=== PATIENT | male | born 1970 | race Caucasian/White ===

== ENCOUNTER 2018-12-04 16:41 | Emergency (ER) | payer OTHER ==
[2018-12-04] MEDS ORDERED: NA CHLORIDE 0.9% 2,000 ML ONE (17:07)
[2018-12-04 17:29] LABS: Absolute Neutrophil 7.1 K/uL (1.8-8.0); Basophils % 0.9 % (0-1.3); Hematocrit 49.4 % (39.6-49.0); Lymphocytes % 26.5 % (15.3-44.8); MPV 8.2 fL (7.6-11.3); Monocytes % 9.1 % (3.3-12.3); RBC Red Blood Cell Count 5.27 M/uL (4.33-5.43)
--- NOTE | 2018-12-04 17:42 | RAD REPORT ---
EXAM DESCRIPTION: CT - CTHCSPWOC - 12/04/2018 5:24 pm CLINICAL HISTORY: Blunt force trauma to the head, face and neck, headache, neck pain, facial pain COMPARISON: None. TECHNIQUE: Axial 5 mm thick images of the head were obtained. Axial 2 mm thick images of the cervic al spine were obtained with sagittal and coronal reconstruction images generated and reviewed. All CT scans are performed using dose optimization technique as appropriate and may include automated exposure control or mA/KV adjustment according to patient size. FINDINGS: No intracranial hemorrhage, mass, edema or acute intracranial finding. No suspicion for ac robinson infarction. No extra-axial fluid collections. Mastoid air cells are clear. Orbits, sinuses and fa cial bones are separately detailed. Cervical body height and alignment are normal. No disk space narrowing. No fracture or acute bony abn ormality. No paraspinal mass or hematoma. IMPRESSION: Negative CT head examination for acute or significant finding. Negative CT cervical spine examination for acute or significant finding. Orbits, facial bones and sinuses are separately detailed.
[2018-12-04 17:43] LABS: Potassium 3.7 mmol/L (3.5-5.1)
--- NOTE | 2018-12-04 17:53 | RAD REPORT ---
EXAM DESCRIPTION: CT - Facial Bones W/ Mpr - 12/04/2018 5:24 pm CLINICAL HISTORY: Blunt force trauma to the face COMPARISON: None. TECHNIQUE: Axial 2 millimeter thick images of the facial bones were obtained with sagittal and coron al reconstruction imaging. All CT scans are performed using dose optimization technique as appropriate and may include automated exposure control or mA/KV adjustment according to patient size. FINDINGS: Mandible is intact. Mandibular condyles show degenerative change but are normally position ed. There is comminuted fractures of the nasal bone with left deviation. Acute fracture of the bony nasal septum is present creating right deviation in the anterior nasal septum and left deviation in the mi d to posterior nasal septum. Anterior left orbital floor fracture is present. No entrapment of the in ferior rectus. There is fracture at the nasofrontal bone junction. There is fracture along the anterior margin media l left orbital wall. Left zygomatic arch is intact. Fracture extends through the medial and lateral w alls of the left maxillary sinus with pterygoid fracture. Air from the left maxillary sinus extends i nto the soft tissues along the anterior, lateral and posterior margin. Air-fluid level is present in the left maxillary sinus. There is complete opacification of the right maxillary sinus. Right orbital floor fracture is present along the anterior margin. This extends laterally to the zygoma maxillary junction. The zygoma itsel f is intact. Right pterygoid fracture is suspected. No entrapment of the right-side extra-ocular musc les. IMPRESSION: Extensive bilateral facial bone fracture pattern as detailed above. Fracture pattern most closely approximates LeFort II pattern. Orbital floor fractures do not result in depressed fracture fragments or extraocular muscle entrapmen t.
--- NOTE | 2018-12-04 17:55 | RAD REPORT ---
EXAM DESCRIPTION: RAD - Hand Right 3 View - 12/04/2018 5:36 pm CLINICAL HISTORY: Reduction of dislocation fifth digit COMPARISON: None. FINDINGS: No fracture is identified. No pre-procedure imaging available. The fifth MCP joint and at fifth digit IP joint show no dislocation. Angulation of the fifth metacarpal head would suggests irwin deling from a remote fracture. An acute fracture is not confirmed but correlation can be made with lo calizing symptoms and history of prior fracture at this site. Elsewhere no acute bone finding. No foreign body. IMPRESSION: Dislocation has been ripped use. Fifth metacarpal head shows evidence for old fracture r emodeling. An acute fracture at this site is not confirmed.
[2018-12-04] MEDS ORDERED: TETANUS & DIPHTHERIA TOX,ADULT 0.5 ML VIAL ONE (18:10)
[2018-12-04] MEDS ORDERED: FENTANYL CITR 100 MCG/2 ML ONE (18:10)
[2018-12-04] MEDS ORDERED: CEFAZOLIN/SWI 1gm 1 GM/10 ML SYR ONE (18:11)
--- NOTE | 2018-12-04 18:33 | ER ---
Nurse's Notes [facility] Name: Hi Singh Age: 48 yrs Sex: Male : 1970 Arrival Date: 12/04/2018 Time: 16:43 Bed 20 Private MD: Diagnosis: LeFort II fracture;Renal insufficiency, dehydration Presentation: 12/04 16:45 Presenting complaint: Collided with another player while playing softball, contusion hb and swelling noted to face, bleeding from nose, diaphoretic, unsteady gait, obvious deformity to right little finger. Negative LOC. 16:45 Transition of care: patient was not received from another setting of care. Onset of hb symptoms was December 04, 2018. Risk Assessment: Do you want to hurt yourself or someone else? Patient reports no desire to harm self or others. Care prior to arrival: None. 16:45 Method Of Arrival: Ambulatory 16:45 Acuity: DISHA 2 hb 16:53 Mechanism of Injury: Fall. Trauma event details: Injury occurred in the county of [facility], Injury occurred: in a recreational area. Injury occurred: December 04, 2018 Injury occurred at: 14:30. 16:55 Initial Sepsis Screen: Does the patient meet any 2 criteria? Systolic BP < 90 mmHg. No. hb Patient's initial sepsis screen is negative. Does the patient have a suspected source of infection? No. Patient's initial sepsis screen is negative. Triage Assessment: 16:50 Injury Description: Laceration sustained to right supraorbital ridge is jagged, 0.5 to tw2 2.5 cm long, not bleeding. Trauma Activation: Alert Physician: ED Physician; Name: ; Notified At: ; Arrived At: Physician: General Surgeon; Name: ; Notified At: ; Arrived At: Physician: Radiology; Name: ; Notified At: ; Arrived At: Physician: Respiratory; Name: ; Notified At: ; Arrived At: Physician: Lab; Name: ; Notified At: ; Arrived At: Historical: - Allergies: 17:05 No Known Allergies; hb - Home Meds: 17:05 None [Active]; hb - PMHx: 17:05 None; hb - PSHx: 17:05 None; hb - Immunization history: Last tetanus immunization: < 10 years ago. - Social history:: Smoking status: Patient/guardian denies using tobacco. - Ebola Screening: : No symptoms or risks identified at this time. Screenin:51 Abuse screen: Denies threats or abuse. Denies injuries from another. Nutritional hb screening: No deficits noted. Tuberculosis screening: No symptoms or risk factors identified. Fall Risk None identified. Primary Survey: 16:50 NO uncontrolled hemorrhage observed. A: The patient is alert. Airway: patent, No hb supplemental oxygen in use on arrival. Oral cavity: clear, Trachea midline. Breathing/Chest: Respiratory pattern: regular, Respiratory effort: spontaneous, unlabored, Chest inspection: symmetrical rise and fall of the chest. Circulation: Skin color: pink, Skin temperature: warm, diaphoretic. Disability Alert. Exposure/Environment: There is evidence of uncontrolled external hemorrhage. Provider notified immediately. Methods to control bleeding applied. Obvious injury(ies) are noted at this time: bruising and swelling noted to face and nose, obvious deformity noted to right little finger. 17:55 Reassessment Airway Airway Patent Breathing/Chest Respiratory pattern Regular tw2 Respiratory effort Spontaneous Unlabored Breath sounds Clear Chest inspection Symmetrical. Secondary Survey: 16:55 HEENT: Face Other bruising and swelling noted to bilateral cheek bones, forehead, and hb nose. Blood noted from notes. Gastrointestinal: No deficits noted. : No deficits noted. No signs and/or symptoms were reported regarding the genitourinary system. Musculoskeletal: Reports right knee pain. 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 hb 16:53 Reassessment: Trauma Alert called [id number]. hb 16:55 General: Appears uncomfortable, Behavior is cooperative, anxious, restless. Pain: Pain hb currently is 10 out of 10 on a pain scale. Neuro: Level of Consciousness is awake, alert, obeys commands, Oriented to person, place, time, situation, Gait is unsteady. EENT: Nares with bleeding noted bilaterally. Cardiovascular: Heart tones S1 S2 present Capillary refill < 3 seconds Patient's skin is warm and dry. Respiratory: Airway is patent Trachea midline Respiratory effort is even, unlabored, Respiratory pattern is regular, symmetrical, Breath sounds are clear bilaterally. GI: No signs and/or symptoms were reported involving the gastrointestinal system. : No signs and/or symptoms were reported regarding the genitourinary system. Derm: Skin is intact, is healthy with good turgor, Skin is diaphoretic, Skin is pink. Musculoskeletal: Swelling bilateral brow area, nose, bilateral cheekbone. 17:25 Reassessment: Patient appears in no apparent distress at this time. returned from CT. em 18:30 Reassessment: Patient appears in no apparent distress at this time. Patient and/or em family updated on plan of care and expected duration. Pain level reassessed. Patient is alert, oriented x 3, equal unlabored respirations, skin warm/dry/pink. rates pain 5/10, friends at bedside. 19:10 Reassessment: report given to [place]IA Salazar at [facility], pending EMS em transportation. 19:34 Reassessment: Patient and/or family updated on plan of care and expected duration. Pain tl1 level reassessed. Patient is alert, oriented x 3, equal unlabored respirations, skin warm/dry/pink. Patient states feeling better. Vital Signs: 16:50 BP 74 / 45; Pulse 103; Resp 20; Temp 97.5; Pulse Ox 94% on R/A; Weight 89.81 kg; Height hb 5 ft. 10 in. (177.80 cm); Pain 10/10; 17:03 BP 113 / 67; Pulse 75; em 17:35 BP 128 / 81; Pulse 68; Resp 18; Pulse Ox 98% on R/A; em 18:30 BP 138 / 89; Pulse 84; Resp 18; Temp 98.0(A); Pulse Ox 100% on R/A; Pain 5/10; em 19:35 BP 127 / 86; Pulse 87; Resp 17; Temp 98; Pulse Ox 100% on R/A; Pain 0/10; tl1 16:50 Body Mass Index 28.41 (89.81 kg, 177.80 cm) hb Maurice Coma Score: 16:51 Eye Response: spontaneous(4). Verbal Response: oriented(5). Motor Response: obeys hb commands(6). Total: 15. 17:35 Eye Response: spontaneous(4). Verbal Response: oriented(5). Motor Response: obeys em commands(6). Total: 15. 18:30 Eye Response: spontaneous(4). Verbal Response: oriented(5). Motor Response: obeys em commands(6). Total: 15. 19:33 Eye Response: spontaneous(4). Verbal Response: oriented(5). Motor Response: obeys tl1 commands(6). Total: 15. Trauma Score (Adult): 16:51 Eye Response: spontaneous(1); Verbal Response: oriented(1); Motor Response: obeys hb commands(2); Systolic BP: 76 to 89 mm Hg(3); Respiratory Rate: 10 to 29 per min(4); Maurice Score: 15; Trauma Score: 11 19:33 Eye Response: spontaneous(1); Verbal Response: oriented(1); Motor Response: obeys tl1 commands(2); Systolic BP: > 89 mm Hg(4); Respiratory Rate: 10 to 29 per min(4); Fifty Six Score: 15; Trauma Score: 12 ED Course: 16:43 Patient arrived in ED. rg4 16:47 Rajiv Ward LVN is Primary Nurse. em 16:48 [facility]C [facility]. snw 16:48 Selvin Gipson MD is Attending Physician. snw 16:50 Arm band placed on. hb 16:51 Triage completed. hb 17:00 Patient maintains SpO2 saturation greater than 95% on room air. Thermoregulation: warm hb blanket given to patient. 17:00 Initial lab(s) drawn, by me, sent to lab. T\T\S collected, blood band applied to patient. em Inserted saline lock: 20 gauge in right antecubital area, using aseptic technique. Blood collected. 17:05 Patient has correct armband on for positive identification. Bed in low position. Call hb light in reach. Side rails up X 1. Adult w/ patient. 17:10 Primary Nurse role handed off by Rajiv Ward LVN tw2 17:10 Pattie De, [place] is Primary Nurse. tw2 17:17 CT completed. Patient tolerated procedure well. Patient moved back from CT. mw3 17:26 CT Facial Bones W/O Con In Process Unspecified. EDMS 17:26 CT Head C Spine In Process Unspecified. EDMS 17:38 Hand Right 3 View XRAY In Process Unspecified. EDMS 19:02 No provider procedures requiring assistance completed. em 19:12 Patient transferred, IV remains in place. em Administered Medications: 17:03 Drug: NS 0.9% 1000 ml Route: IV; Rate: 1 bolus; Site: right antecubital; em 19:13 Follow up: IV Status: Completed infusion; IV Intake: 1000ml em 17:03 Drug: NS 0.9% 1000 ml Route: IV; Rate: 1 bolus; Site: right antecubital; em 19:34 Follow up: IV Status: Completed infusion tl1 18:06 Drug: fentaNYL (PF) 50 mcg Route: IVP; Site: right antecubital; tw2 18:58 Follow up: Response: No adverse reaction; Pain is decreased em 18:07 Drug: Ancef 1 grams Route: IVPB; Site: right antecubital; tw2 18:15 Follow up: Response: No adverse reaction; IV Status: Completed infusion; IV Intake: 10mlem 18:08 Drug: Tetanus-Diphtheria Toxoid Adult 0.5 ml {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 Exp: em 08/25/2020. Lot #: [id number]. } Route: IM; Site: right deltoid; 18:58 Follow up: Response: No adverse reaction em Intake: 18:15 IV: 10ml; Total: 10ml. em 19:03 PO: 0ml; Total: 10ml. em 19:13 IV: 1000ml; Total: 1010ml. em Output: 19:03 Urine: 0ml; Total: 0ml. em Outcome: 18:33 ER care complete, transfer ordered by . snw 19:11 Transferred by ground EMS to [facility], Transfer form completed. X-rays sent em w/ patient. 19:11 Condition: stable 19:11 Patient's length of stay in the Emergency Department was greater than 2 hours. transferring ptPatient's length of stay extended due to 19:38 Patient left the ED. tl1 Signatures: Dispatcher [employer] EDMS Brigid Madrigal, COAL HAULER-C COAL HAULER-Csnw Rajiv Ward, SENIOR SALES CONSULTANT SENIOR SALES CONSULTANT em Nora Nazario RN RN tl1 Sheyla Conde RN RN hb Wise, Tara, RN RN tw2 Sophia Magdaleno rg4 Carolyn Ruiz mw3 Corrections: (The following items were deleted from the chart) 17:05 16:45 Presenting complaint: Collided with another player while playing softball, hb contusion and swelling noted to face, obvious deformity to right little finger. hb 17:23 16:51 BP 84 / 47; Pulse 103bpm; Resp 20bpm; Pulse Ox 94% RA; Temp 97.5F; 89.81 kg; hb Height 5 ft. 10 in.; BMI: 28.4; Pain 10/10; hb
--- NOTE | 2018-12-04 18:33 | EDPHYS ---
Physician Documentation [facility] Name: Hi Singh Age: 48 yrs Sex: Male : 1970 Arrival Date: 12/04/2018 Time: 16:43 Bed 20 Private MD: ED Physician Selvin Gipson HPI: 12/04 17:05 This 48 yrs old Male presents to ER via Ambulatory with complaints of Finger snw Injury, Facial Injury. 17:05 Trauma demographics: County: The [place] occurred in [place] Location of Injury: The snw injury occurred outdoors, Date: , Time: 16:00. Associated injuries: The patient sustained injury to the head, contusion, pain, tenderness, right hand, contusion, deformity, painful injury, swelling. Onset: The symptoms/episode began/occurred suddenly, just prior to arrival. The patient has not experienced similar symptoms in the past. It is unknown whether or not the patient has recently seen a physician. Historical: - Allergies: 17:05 No Known Allergies; hb - Home Meds: 17:05 None [Active]; hb - PMHx: 17:05 None; hb - PSHx: 17:05 None; hb - Immunization history: Last tetanus immunization: < 10 years ago. - Social history:: Smoking status: Patient/guardian denies using tobacco. - Ebola Screening: : No symptoms or risks identified at this time. ROS: 17:01 Eyes: Negative for injury, pain, redness, and discharge. snw 17:01 Neck: Negative for injury, pain, and swelling, Cardiovascular: Negative for chest pain, palpitations, and edema, Respiratory: Negative for shortness of breath, cough, wheezing, and pleuritic chest pain, Abdomen/GI: Negative for abdominal pain, nausea, vomiting, diarrhea, and constipation, Back: Negative for injury and pain, : Negative for injury, bleeding, discharge, and swelling. 17:01 Abdomen/GI: Negative for abdominal pain, vomiting, diarrhea, and constipation, + nausea 17:01 Constitutional: Positive for fatigue, malaise. 17:01 ENT: Positive for sinus pain, nosebleed. 17:01 MS/extremity: Positive for injury or acute deformity, decreased range of motion, deformity, pain, swelling, tenderness, of the dorsal aspect of middle phalanx of right little finger and dorsal aspect of proximal phalanx of right little finger. 17:01 Skin: Positive for laceration(s), of the inner aspect of right eyebrow. 17:01 Neuro: Positive for dizziness, Negative for loss of consciousness. Exam: 16:56 Constitutional: This is a well developed, well nourished patient who is awake, alert, snw and in no acute distress. 16:56 Eyes: Pupils equal round and reactive to light, extra-ocular motions intact. Lids and lashes normal. Conjunctiva and sclera are non-icteric and not injected. Cornea within normal limits. Periorbital areas with no swelling, redness, or edema. 16:56 Neck: Trachea midline, no thyromegaly or masses palpated, and no cervical lymphadenopathy. Supple, full range of motion without nuchal rigidity, or vertebral point tenderness. No Meningismus. Chest/axilla: Normal chest wall appearance and motion. Nontender with no deformity. No lesions are appreciated. Cardiovascular: Regular rate and rhythm with a normal S1 and S2. No gallops, murmurs, or rubs. Normal PMI, no JVD. No pulse deficits. Respiratory: Lungs have equal breath sounds bilaterally, clear to auscultation and percussion. No rales, rhonchi or wheezes noted. No increased work of breathing, no retractions or nasal flaring. Abdomen/GI: Soft, non-tender, with normal bowel sounds. No distension or tympany. No guarding or rebound. No evidence of tenderness throughout. Back: No spinal tenderness. No costovertebral tenderness. Full range of motion. Skin: Warm, profuse diaphoresis with normal turgor. Normal color with no rashes, lacerations as noted to face, and no evidence of cellulitis. MS/ Extremity: Pulses equal, no cyanosis. Neurovascular intact. Full, normal range of motion except to right pinkie which has obvious dislocation, pressure/traction applied and pinkie reduced. Pt tolerated well, + NVS 16:56 Head/face: Noted is contusion, a laceration(s), that is deep, 2 cm(s), of the inner aspect of right eyebrow, swelling, that is moderate, of the right eye and nose, tenderness, that is moderate. 16:56 ENT: External ear(s): are unremarkable, Ear canal(s): are normal, TM's: are normal, Nose: External nose: contusion is noted, swelling is noted, bleeding, is noted from both nares, and is moderate, Mouth: is normal, Posterior pharynx: is normal, Voice: is normal. 16:56 Neuro: Orientation: is normal, Mentation: is normal, seizure activity, is not displayed by the patient. Vital Signs: 16:50 BP 74 / 45; Pulse 103; Resp 20; Temp 97.5; Pulse Ox 94% on R/A; Weight 89.81 kg; Height hb 5 ft. 10 in. (177.80 cm); Pain 10/10; 17:03 BP 113 / 67; Pulse 75; em 17:35 BP 128 / 81; Pulse 68; Resp 18; Pulse Ox 98% on R/A; em 18:30 BP 138 / 89; Pulse 84; Resp 18; Temp 98.0(A); Pulse Ox 100% on R/A; Pain 5/10; em 19:35 BP 127 / 86; Pulse 87; Resp 17; Temp 98; Pulse Ox 100% on R/A; Pain 0/10; tl1 16:50 Body Mass Index 28.41 (89.81 kg, 177.80 cm) hb Maurice Coma Score: 16:51 Eye Response: spontaneous(4). Verbal Response: oriented(5). Motor Response: obeys hb commands(6). Total: 15. 17:35 Eye Response: spontaneous(4). Verbal Response: oriented(5). Motor Response: obeys em commands(6). Total: 15. 18:30 Eye Response: spontaneous(4). Verbal Response: oriented(5). Motor Response: obeys em commands(6). Total: 15. 19:33 Eye Response: spontaneous(4). Verbal Response: oriented(5). Motor Response: obeys tl1 commands(6). Total: 15. Trauma Score (Adult): 16:51 Eye Response: spontaneous(1); Verbal Response: oriented(1); Motor Response: obeys hb commands(2); Systolic BP: 76 to 89 mm Hg(3); Respiratory Rate: 10 to 29 per min(4); Solen Score: 15; Trauma Score: 11 19:33 Eye Response: spontaneous(1); Verbal Response: oriented(1); Motor Response: obeys tl1 commands(2); Systolic BP: > 89 mm Hg(4); Respiratory Rate: 10 to 29 per min(4); Maurice Score: 15; Trauma Score: 12 MDM: 17:10 Patient medically screened. snw 18:17 Data reviewed: vital signs, nurses notes. Data interpreted: Pulse oximetry: on room air snw is 98 %. Interpretation: normal. Counseling: I had a detailed discussion with the patient and/or guardian regarding: the historical points, exam findings, and any diagnostic results supporting the discharge/admit diagnosis, lab results, radiology results, the need to transfer to another facility. Response to treatment: the patient's symptoms have markedly improved after treatment, A\T\O x 3, blood pressure improved, no vomiting, dizziness improved, full EOM continues, parasthesias to bilateral cheeks. Epistaxis clamp removed and then replaced for continued bloody discharge. 18:27 Physician consultation: Dr Mariza Cordero was called at 18:28, was contacted at 18:28, snw regarding regarding transfer, to [facility]. Dr. Cordero kindly accepts pt in transfer. 12/04 16:54 Order name: Basic Metabolic Panel; Complete Time: 17:43 snw 12/04 16:54 Order name: CBC with Diff; Complete Time: 17:56 snw 12/04 16:54 Order name: CT Head C Spine; Complete Time: 17:43 snw 12/04 16:54 Order name: Type And Screen; Complete Time: 18:15 snw 12/04 17:51 Order name: Add On-Lab snw 12/04 18:25 Order name: Creatine Phosphokinase; Complete Time: 19:01 EDMS 12/04 16:54 Order name: Hand Right 3 View XRAY; Complete Time: 17:56 snw 12/04 16:54 Order name: Labs collected and sent; Complete Time: 17:02 snw 12/04 16:55 Order name: CT Facial Bones W/O Con; Complete Time: 17:56 snw 12/04 16:54 Order name: Misc. Order: epistaxis clamp; Complete Time: 17:02 snw Administered Medications: 17:03 Drug: NS 0.9% 1000 ml Route: IV; Rate: 1 bolus; Site: right antecubital; em 19:13 Follow up: IV Status: Completed infusion; IV Intake: 1000ml em 17:03 Drug: NS 0.9% 1000 ml Route: IV; Rate: 1 bolus; Site: right antecubital; em 19:34 Follow up: IV Status: Completed infusion tl1 18:06 Drug: fentaNYL (PF) 50 mcg Route: IVP; Site: right antecubital; tw2 18:58 Follow up: Response: No adverse reaction; Pain is decreased em 18:07 Drug: Ancef 1 grams Route: IVPB; Site: right antecubital; tw2 18:15 Follow up: Response: No adverse reaction; IV Status: Completed infusion; IV Intake: 10mlem 18:08 Drug: Tetanus-Diphtheria Toxoid Adult 0.5 ml {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 Exp: em 08/25/2020. Lot #: [id number]. } Route: IM; Site: right deltoid; 18:58 Follow up: Response: No adverse reaction em Disposition: 12/04/18 18:33 Transfer ordered to [facility]. Diagnosis are LeFort II fracture, Renal insufficiency, dehydration. - Reason for transfer: Higher level of care. - Accepting physician is Dr. Cordero. - Condition is Stable. - Problem is new. - Symptoms have improved. Addendum: 12/06/2018 19:02 Co-signature as Attending Physician, Selvin Gipson MD. r n Signatures: Dispatcher [employer] EDMS Brigid Madrigal, RECORDS MANAGEMENT TECHNICIAN-C RECORDS MANAGEMENT TECHNICIAN-Csnw Ed, Rajiv, ADOPTION SERVICES MANAGER ADOPTION SERVICES MANAGER em Selvin Gipson MD MD rn Lasagna, Tonya RN RN tl1 Sheyla Conde, RN Pattie Callejas RN RN tw2 Corrections: (The following items were deleted from the chart) 12/04 19:38 18:33 12/04/2018 18:33 Transfer ordered to [facility]. tl1 Diagnosis is LeFort II fracture; Renal insufficiency, dehydration. Reason for transfer: Higher level of care. Accepting physician is Dr. Cordero. Condition is Stable. Problem is new. Symptoms have improved. snw
[2018-12-04 19:54] VITALS: O2SAT 100
[2018-12-04 19:56] VITALS: BP 127/86; TEMP 98
== END 2018-12-04 19:38 | disposition short-term general hospital (02) ==
LOC: ER 16:41
DX: S02.412A LeFort II fracture, initial encounter for closed fracture (principal); E86.0 Dehydration; N28.9 Disorder of kidney and ureter, unspecified; R04.0 Epistaxis; X58.XXXA Exposure to other specified factors, initial encounter; Y93.9 Activity, unspecified; Y92.89 Other specified places as the place of occurrence of the external cause; Z23 Encounter for immunization
CPT/HCPCS: 36415; 70450; 70486; 72125; 76377; 80048; 82550; 85025; 86850; 86900; 86901; 90471; 90714; 96361; 96374; 96375; 99285; J0690; J3010; J7030

== ENCOUNTER 2019-03-29 22:39 | Emergency (ER) | payer OTHER ==
[2019-03-30] MEDS ORDERED: NA CHLORIDE 0.9% 1,000 ML ONE (00:27)
[2019-03-30 01:40] LABS: Absolute Lymphocytes (CBC) 2.5 K/uL (0.7-4.9); Basophils % 1.2 % (0-1.3); Hematocrit 40.8 % (39.6-49.0); Lymphocytes % 30.9 % (15.3-44.8); MPV 8.4 fL (7.6-11.3); RBC Red Blood Cell Count 4.36 M/uL (4.33-5.43)
[2019-03-30 01:49] LABS: Albumin 3.9 g/dL (3.4-5.0); Bilirubin Total 0.5 mg/dL (0.2-1.0); Potassium 3.7 mmol/L (3.5-5.1); Protein, Total 7.8 g/dL (6.4-8.2)
--- NOTE | 2019-03-30 02:41 | ER ---
Nurse's Notes [facility] [place] Name: Hi Singh Age: 49 yrs Sex: Male : 1970 Arrival Date: 03/29/2019 Time: 22:42 Bed 17 Private MD: Diagnosis: Renal colic;right flank pain Presentation: 03/29 22:50 Presenting complaint: Patient states: Lower back pain that feel like kidney stone. Pt ao report Kidney stones in the past. Pt denies nausea and vomiting. Patient denies blood in the urine and reports burning sensations and frequency. Transition of care: patient was not received from another setting of care. Onset of symptoms is unknown. Risk Assessment: Do you want to hurt yourself or someone else? Patient reports no desire to harm self or others. Initial Sepsis Screen: Does the patient meet any 2 criteria? No. Patient's initial sepsis screen is negative. Does the patient have a suspected source of infection? No. Patient's initial sepsis screen is negative. Care prior to arrival: None. 22:50 Method Of Arrival: Ambulatory ao 22:50 Acuity: DISHA 3 ao Historical: - Allergies: 22:54 No Known Allergies; ao - Home Meds: 22:54 None [Active]; ao - PMHx: 22:54 Kidney stones; ao - PSHx: 22:54 Facial Sx; ao - Immunization history:: Adult Immunizations up to date. - Social history:: Smoking status: Patient/guardian denies using tobacco, Patient/guardian denies using street drugs, IV drugs. - Ebola Screening: : Patient negative for fever greater than or equal to 101.5 degrees Fahrenheit, and additional compatible Ebola Virus Disease symptoms Patient denies exposure to infectious person Patient denies travel to an Ebola-affected area in the 21 days before illness onset. Screenin:12 Abuse screen: Denies threats or abuse. Denies injuries from another. Nutritional ao screening: No deficits noted. Tuberculosis screening: No symptoms or risk factors identified. Fall Risk None identified. Assessment: 23:11 General: Appears in no apparent distress. uncomfortable, Behavior is appropriate for ao age. Pain: Complains of pain in Lower back pain Pain currently is 8 out of 10 on a pain scale. Neuro: Level of Consciousness is awake, alert, obeys commands, Oriented to person, place, time, situation, Appropriate for age Moves all extremities. Full function Speech is normal, Facial symmetry appears normal. Cardiovascular: Capillary refill < 3 seconds Patient's skin is warm and dry. Respiratory: Airway is patent Respiratory effort is even, unlabored, Respiratory pattern is regular, symmetrical. GI: Reports lower abdominal pain. : Reports burning with urination, urinary frequency. EENT: No signs and/or symptoms were reported regarding the EENT system. Derm: No signs and/or symptoms reported regarding the dermatologic system. Musculoskeletal: Reports pain in left low back and right low back. 03/30 00:00 Reassessment: Patient appears in no apparent distress at this time. Patient and/or jb4 family updated on plan of care and expected duration. Pain level reassessed. Patient is alert, oriented x 3, equal unlabored respirations, skin warm/dry/pink. 01:03 Reassessment: Patient appears in no apparent distress at this time. Patient and/or jb4 family updated on plan of care and expected duration. Pain level reassessed. Patient is alert, oriented x 3, equal unlabored respirations, skin warm/dry/pink. Patient states feeling better. 02:23 Reassessment: Patient appears in no apparent distress at this time. Patient and/or jb4 family updated on plan of care and expected duration. Pain level reassessed. Patient is alert, oriented x 3, equal unlabored respirations, skin warm/dry/pink. 02:50 Reassessment: Patient appears in no apparent distress at this time. Patient and/or jb4 family updated on plan of care and expected duration. Pain level reassessed. Patient is alert, oriented x 3, equal unlabored respirations, skin warm/dry/pink. PT verbalized understanding of d/c and follow up instructions. Vital Signs: 03/29 22:54 BP 144 / 92; Pulse 62; Resp 18; Temp 97.6(O); Pulse Ox 98% on R/A; Weight 88.45 kg (M); ao Height 5 ft. 9 in. (175.26 cm); Pain 8/10; 03/30 00:00 BP 130 / 67; Pulse 61; Resp 16; Pulse Ox 96% on R/A; jb4 01:03 BP 126 / 85; Pulse 75; Resp 16; Pulse Ox 98% on R/A; jb4 02:00 BP 136 / 91; Pulse 70; Resp 16; Pulse Ox 99% on R/A; jb4 03/29 22:54 Body Mass Index 28.80 (88.45 kg, 175.26 cm) ao ED Course: 03/29 22:42 Patient arrived in ED. cf2 22:53 Triage completed. ao 22:55 Arm band placed on right wrist. Patient placed in waiting room, on pulse oximetry, ao Patient notified of wait time. 23:12 Patient has correct armband on for positive identification. Pulse ox on. NIBP on. ao 23:20 Initial lab(s) drawn, by ED staff, sent to lab. Inserted saline lock: 20 gauge in right jb4 antecubital area, using aseptic technique. Blood collected. 10 00:00 Renato Trevino, RN is Primary Nurse. jb4 00:37 João Ratliff MD is Attending Physician. ps1 00:53 CT completed. Patient tolerated procedure well. Patient moved to CT via stretcher. Patient moved back from CT. 01:15 CT Stone Protocol In Process Unspecified. EDMS 02:38 Teto Armendariz MD is Referral Physician. ps1 02:50 No provider procedures requiring assistance completed. IV discontinued, intact, jb4 bleeding controlled, No redness/swelling at site. Pressure dressing applied. Administered Medications: 00:35 Drug: NS 0.9% 1000 ml Route: IV; Rate: 1000 ml; Site: right antecubital; jb4 01:30 Follow up: Response: No adverse reaction; IV Status: Completed infusion; IV Intake: jb4 1000ml Intake: 01:30 IV: 1000ml; Total: 1000ml. jb4 Outcome: 02:39 Discharge ordered by . ps1 02:50 Discharged to home ambulatory, with family. jb4 02:50 Condition: stable 02:50 Discharge instructions given to patient, family, Instructed on discharge instructions, follow up and referral plans. Demonstrated understanding of instructions, follow-up care. 02:52 Patient left the ED. jb4 Signatures: Dispatcher [employer] EDNJ Mo Torres Alex RN RN Renato Boudreaux RN RN jb4 João Ratliff MD MD ps1 Rosamaria Borja cf2
--- NOTE | 2019-03-30 02:41 | EDPHYS ---
Physician Documentation [facility] Name: Hi Singh Age: 49 yrs Sex: Male : 1970 Arrival Date: 03/29/2019 Time: 22:42 Bed 17 Private MD: ED Physician João Ratliff HPI: 03/30 02:10 This 49 yrs old Male presents to ER via Ambulatory with complaints of Back ps1 Pain, Abdominal Pain. 02:10 patient presenting with right flank pain. Onset was today. Pain was described as ps1 throbbing. Hx of stones and feels like the same. Prior to evaluation by myself the patient states that his pain spontaneously resolved. He is afebrile and able to make urine. . Historical: - Allergies: 03/29 22:54 No Known Allergies; ao - Home Meds: 22:54 None [Active]; ao - PMHx: 22:54 Kidney stones; ao - PSHx: 22:54 Facial Sx; ao - Immunization history:: Adult Immunizations up to date. - Social history:: Smoking status: Patient/guardian denies using tobacco, Patient/guardian denies using street drugs, IV drugs. - Ebola Screening: : Patient negative for fever greater than or equal to 101.5 degrees Fahrenheit, and additional compatible Ebola Virus Disease symptoms Patient denies exposure to infectious person Patient denies travel to an Ebola-affected area in the 21 days before illness onset. ROS: 03/30 02:34 Constitutional: Negative for fever, chills, and weight loss, Eyes: Negative for injury, ps1 pain, redness, and discharge, Cardiovascular: Negative for chest pain, palpitations, and edema, Respiratory: Negative for shortness of breath, cough, wheezing, and pleuritic chest pain, Abdomen/GI: Negative for abdominal pain, nausea, vomiting, diarrhea, and constipation, MS/Extremity: Negative for injury and deformity, Skin: Negative for injury, rash, and discoloration. : Positive for urinary symptoms, flank pain. Exam: 02:34 Constitutional: This is a well developed, well nourished patient who is awake, alert, ps1 and in no acute distress. Head/Face: Normocephalic, atraumatic. Eyes: Pupils equal round and reactive to light, extra-ocular motions intact. Lids and lashes normal. Conjunctiva and sclera are non-icteric and not injected. Chest/axilla: Normal chest wall appearance and motion. Nontender with no deformity. No lesions are appreciated. Cardiovascular: Regular rate and rhythm. No gallops, murmurs, or rubs. Normal PMI, no JVD. No pulse deficits. Respiratory: Lungs have equal breath sounds bilaterally, clear to auscultation and percussion. No rales, rhonchi or wheezes noted. No increased work of breathing, no retractions or nasal flaring. Abdomen/GI: Soft, non-tender, with normal bowel sounds. No distension or tympany. No guarding or rebound. No evidence of tenderness throughout. MS/ Extremity: Pulses equal, no cyanosis. Neurovascular intact. Full, normal range of motion. Neuro: Awake and alert, GCS 15, oriented to person, place, time, and situation. Cranial nerves II-XII grossly intact. Sensory grossly intact. Vital Signs: 03/29 22:54 BP 144 / 92; Pulse 62; Resp 18; Temp 97.6(O); Pulse Ox 98% on R/A; Weight 88.45 kg (M); ao Height 5 ft. 9 in. (175.26 cm); Pain 8/10; 03/30 00:00 BP 130 / 67; Pulse 61; Resp 16; Pulse Ox 96% on R/A; jb4 01:03 BP 126 / 85; Pulse 75; Resp 16; Pulse Ox 98% on R/A; jb4 02:00 BP 136 / 91; Pulse 70; Resp 16; Pulse Ox 99% on R/A; jb4 03/29 22:54 Body Mass Index 28.80 (88.45 kg, 175.26 cm) ao MDM: 02:10 Patient medically screened. ps1 02:40 Data reviewed: vital signs, nurses notes, radiologic studies, and as a result, I will ps1 discharge patient. Counseling: I had a detailed discussion with the patient and/or guardian regarding: the historical points, exam findings, and any diagnostic results supporting the discharge/admit diagnosis, lab results, radiology results, the need for outpatient follow up, to return to the emergency department if symptoms worsen or persist or if there are any questions or concerns that arise at home. ED course: passed stone in urine sample. Sent stone to lab. . 03/30 00:24 Order name: CBC with Diff; Complete Time: 02:10 aa1 03/30 00:24 Order name: CMP; Complete Time: 02:10 aa1 03/30 00:24 Order name: Urine Dipstick-Ancillary (obtain specimen); Complete Time: 02:40 aa1 03/30 00:24 Order name: CT Stone Protocol aa1 Administered Medications: 00:35 Drug: NS 0.9% 1000 ml Route: IV; Rate: 1000 ml; Site: right antecubital; jb4 01:30 Follow up: Response: No adverse reaction; IV Status: Completed infusion; IV Intake: jb4 1000ml Disposition: 03/30/19 02:39 Discharged to Home. Impression: Renal colic, right flank pain. - Condition is Stable. - Discharge Instructions: Renal Colic. - Medication Reconciliation Form, Thank You Letter, Antibiotic Education, Prescription Opioid Use form. - Follow up: Teto Armendariz MD; When: 48 Hours; Reason: Further diagnostic work-up, Recheck today's complaints, Continuance of care, Re-evaluation by your physician. Follow up: Emergency Department; When: As needed; Reason: Fever > 102 F, Worsening of condition. - Problem is new. - Symptoms are resolved. Signatures: Dispatcher [employer] EDMS Penny Todd RN RN aa1 Kvng Lester RN Renato Doll RN RN jb4 João Ratliff MD MD ps1 Corrections: (The following items were deleted from the chart) 02:37 02:10 patient presenting with right flank pain. ps1 ps1 02:52 02:39 03/30/2019 02:39 Discharged to Home. Impression: Renal colic; right flank pain. jb4 Condition is Stable. Forms are Medication Reconciliation Form, Thank You Letter, Antibiotic Education, Prescription Opioid Use. Follow up: Teto Armendariz; When: 48 Hours; Reason: Further diagnostic work-up, Recheck today's complaints, Continuance of care, Re-evaluation by your physician. Follow up: Emergency Department; When: As needed; Reason: Fever > 102 F, Worsening of condition. Problem is new. Symptoms are resolved. ps1
[2019-03-30 02:58] LABS: Urine Blood 2+ (NEG); Urine Glucose NEGATIVE (NEG); Urine Protein NEGATIVE (NEG); Urine Specific Gravity 1.015 (1.005-1.030)
[2019-03-30 03:09] VITALS: TEMP 97.6
[2019-03-30 03:13] VITALS: BP 136/91; O2SAT 99
--- NOTE | 2019-03-30 10:41 | RAD REPORT ---
EXAM DESCRIPTION: Stone Protocol CLINICAL HISTORY: KIDNEY STONES COMPARISON: None. TECHNIQUE: CT ABDOMEN PELVIS WITHOUT IV CONTRAST on 03/30/2019 12:24 AM CDT This exam was performed according to our departmental dose-optimization program, which includes autom ated exposure control, adjustment of the mA and/or kV according to patient size and/or use of iterati ve reconstruction technique. FINDINGS: Lower lungs are clear. Abdomen: There are multiple small presumed cysts within the liver, many of which are too small to umesh racterize. There is no biliary dilatation. Gallbladder is decompressed. The pancreas and spleen are n ormal in appearance. There are at least three right renal calculi and at least nine left renal calcul i. These measure up to 2 mm. There is no hydronephrosis. Abdominal aorta is normal in course and caliber without aneurysm. There is no free air. There is no r etroperitoneal adenopathy. Pelvis: There is moderate diverticulosis of the sigmoid colon. There is a 3 mm calculus in the urinar y bladder. There is no free fluid. Appendix is normal. Skeleton: There are no acute osseous findings. No suspicious bony lesions. IMPRESSION: Bilateral nephrolithiasis, more significant on the left. No hydronephrosis. Tiny urinary bladder calculus. Electronically signed by: Stas Ruffin MD 03/30/2019 1:19 AM CDT Due to temporary technical issues with the PACS/Fluency reporting system, reports are being signed by the in house radiologist as a courtesy to ensure prompt reporting. The interpreting radiologist is f ully responsible for the content of the report.
== END 2019-03-30 02:52 | disposition home or self-care (01) ==
LOC: ER 22:39
DX: N23 Unspecified renal colic (principal)
CPT/HCPCS: 85025; 36415; 88300; 81003; 80053; 82360; 76377; 74176; 96360; 99284; J7030

== ENCOUNTER 2019-04-19 06:06 | Day surgery (SDC) | payer OTHER ==
--- NOTE | 2019-04-12 09:31 | EKG ---
Test Date: 2019-04-12 Test Time: 09:29:32 Criminal Intelligence Analyst: MARIA ELENA MEASUREMENT RESULTS: Intervals: Rate: 52 [place]: 172 QRSD: 88 QT: 432 QTc: 401 [place]: P: 51 [place]: 172 QRS: 47 T: 38 INTERPRETIVE STATEMENTS: Sinus bradycardia Otherwise normal ECG Compared to ECG 09/28/2016 08:00:03 Sinus rhythm no longer present Electronically Signed On 04-12-19 09:31:11 CDT by Osorio Wright
[2019-04-12 10:13] LABS: Urine Appearance CLEAR; Urine Bilirubin NEGATIVE (NEG); Urine Blood NEGATIVE (NEG); Urine Color YELLOW; Urine Glucose NEGATIVE (NEG); Urine Protein NEGATIVE (NEG); Urine Urobilinogen 0.2 mg/dL (0.2-1.0); Urine pH 6.5 (5.0-7.0)
--- NOTE | 2019-04-12 10:20 | RAD REPORT ---
EXAM DESCRIPTION: RAD - Chest Pa And Lat (2 Views) - 04/12/2019 10:06 am CLINICAL HISTORY: preop Chest pain. COMPARISON: Abdomen 1 View (KUB) dated 10/07/2016; Chest Single View dated 09/28/2016 FINDINGS: The lungs are clear. The heart is normal in size. No displaced fractures. IMPRESSION: No acute or concerning finding suspected.
[2019-04-12 10:23] LABS: Urine Microscopic Reflex NO UMIC
[2019-04-12 10:24] LABS: Protime INR 1.04
[2019-04-12 10:26] LABS: Albumin 4.1 g/dL (3.4-5.0); Bilirubin Direct 0.2 mg/dL (0-0.2); Bilirubin Total 0.7 mg/dL (0.2-1.0); Protein, Total 8.2 g/dL (6.4-8.2)
[2019-04-12 10:43] LABS: Absolute Lymphocytes (CBC) 1.7 K/uL (0.7-4.9); Basophils % 0.7 % (0-1.3); Hematocrit 45.3 % (39.6-49.0); Lymphocytes % 24.2 % (15.3-44.8); MPV 8.3 fL (7.6-11.3); RBC Red Blood Cell Count 4.87 M/uL (4.33-5.43)
[2019-04-12 10:44] LABS: Potassium 3.9 mmol/L (3.5-5.1)
[2019-04-19] MEDS ORDERED: CEFAZOLIN/SWI 2gm 2 GM/20 ML SYR ONE (06:23)
[2019-04-19] MEDS ORDERED: Ringers Lactate 1,000 ML IV ONE ×2 (06:23→07:09)
[2019-04-19] MEDS ORDERED: FENTANYL CITR 250 MCG/5 ML ONE (06:43)
[2019-04-19] MEDS ORDERED: PROPOFOL 200 MG/20 ML VIAL IV ONE (06:43)
[2019-04-19] MEDS ORDERED: ROCURONIUM 50 MG/5 ML VIAL IV ONE (06:43)
[2019-04-19] MEDS ORDERED: MIDAZOLAM HCL 2 MG/2 ML INJ ONE (06:43)
[2019-04-19] MEDS ORDERED: LIDOCAINE 2% MPF 5 ML VIAL ONE (06:43)
[2019-04-19] MEDS ORDERED: NS 0.9% VIAL 10 ML ONE (06:51)
[2019-04-19] MEDS ORDERED: EPINEPHRINE/PF 1 MG/ML AMP ONE ×2 (06:51→07:09)
[2019-04-19] MEDS ORDERED: dexAMETHasone 4 MG/ML VIAL ONE (06:52)
[2019-04-19] MEDS ORDERED: ROPLVACAINE HCL 20 ML ONE ×2 (06:52→10:51)
[2019-04-19] MEDS ORDERED: EPHEDRINE SULF 50 MG/ML VIAL ONE (08:18)
[2019-04-19] MEDS ORDERED: KETOROLAC 30 MG/ML INJ ONE (09:46)
--- NOTE | 2019-04-19 10:25 | P.BOP ---
Preoperative diagnosis: right rotator cuff tear, impingement, AC arthrosis, biceps tendinitis Postoperative diagnosis: same, SLAP tear Primary procedure: right shoulder arthroscopic rotator cuff repair Secondary procedure: right SLAP debridement with arthroscopic subacromial decompression Other procedure(s): right arthroscopic distal clavicle excision, open subpec biceps tenodesis Estimated blood loss: <10 cc Specimen: none Findings: see dictation Anesthesia: General Implants: 1- 5.5 mm Arthrex corkscrew, 4.75 mm swivelock, 7x19 biotenodesis screw Fluids & blood products: per anesthesia Transferred to: Recovery Room Condition: Good
[2019-04-19] MEDS ORDERED: MORPHINE 4 MG/ML SYR ONE (10:38)
[2019-04-19] MEDS ORDERED: ONDANSETRON 4 MG/2 ML VIAL ONE (10:43)
[2019-04-19] MEDS ORDERED: HYDROMORPHONE HCL 1 MG/ML INJ ONE (10:44)
[2019-04-19 12:20] VITALS: O2SAT 95
--- NOTE | 2019-04-19 12:29 | RAD REPORT ---
EXAM DESCRIPTION: RAD - Shoulder 1 View - 04/19/2019 12:21 pm CLINICAL HISTORY: S P ROTATOR CUFF REPAIR COMPARISON: No comparisons FINDINGS: Single postsurgical projection of the right shoulder submitted. No fracture or subluxation is seen. Mild soft tissue swelling is evident.
[2019-04-19] MEDS ORDERED: HYDROCODONE/APAP 7.5/325 MG TAB ONE (12:38)
[2019-04-19 13:38] VITALS: BP 126/75; TEMP 97.4
--- NOTE | 2019-04-24 15:42 | OP ---
Date of Procedure: 04/19/2019 Surgeon: Delmer Burt MD Preoperative Diagnoses: 1.Right shoulder rotator cuff tear. 2.Right shoulder flexible tenosynovitis. 3.Right shoulder impingement syndrome. 4.Right shoulder acromioclavicular joint arthrosis. Postoperative Diagnoses: 1.Right shoulder rotator cuff tear. 2.Right shoulder flexible tenosynovitis. 3.Right shoulder impingement syndrome. 4.Right shoulder acromioclavicular joint arthrosis. 5.Right shoulder SLAP tear. Procedure Performed: 1.Right shoulder arthroscopic rotator cuff repair. 2.Right shoulder arthroscopic SLAP tear debridement. 3.Right shoulder arthroscopic subacromial decompression. 4.Right shoulder arthroscopic distal clavicle excision. 5.Right shoulder open subpectoral biceps tenodesis. Anesthesia: General endotracheal. Fluids: Per Anesthesia record. Estimated Blood Loss: Less than 10 mL. Implants: 1.5.5 mm Arthrex . 2.4.75 mm Arthrex SwiveLock. 3.7 mm Arthrex Bio-Tenodesis screw. Complications: None. Indication For Procedure: Hi is a 49-year-old male who presented to my clinic with signs, sympt oms, and MRI consistent with acute rotator cuff tear after sustaining an injury to his right shoulder . Patient had pain and difficulty with ADLs and tear of the rotator cuff. I discussed with the chapin ent at length risks and benefits associated with operative and nonoperative treatment. He expressed understanding and elected to proceed with operative treatment. Description Of Procedure: After informed consent was obtained, the patient was identified in the pre operative holding area. The right upper extremity was marked. The patient was then taken back to [facility], where he underwent interscalene block to the right upper extremity performed by Anesthesia. Afte r this was completed, the patient was taken to the operative room, transferred to the operative table in supine fashion and placed under general endotracheal anesthesia. The patient was then placed in a beach chair position with the extremities well padded. The right shoulder was then examined. The patient had full range of motion and no instability noted in his right shoulder. The right upper ext remity was then prepped and draped in usual sterile fashion. A time-out was initiated. The correct patient and procedure were confirmed and identified. The patient did receive his preoperative prophy lactic antibiotics. Via the posterior portal position, a spinal needle was introduced into the gleno humeral joint and joint was injected with 30 mL of normal saline to distend the capsule. A posterior portal was created using an 11 blade and an arthroscope was brought in the posterior portal position and diagnostic arthroscopy was performed. anterior portal was made under direct visualiz ation and it was placed into position to do a distal clavicle excision later in the case. Attention was first taken to the superior labrum, where the patient was noted to have type 1 SLAP tear as well as fraying and mild tearing of biceps tendon anchor. Biceps tenotomy was performed using a meniscal biter and arthroscopic shaver. Superior labrum was debrided using an arthroscopic shaver. The anter ior and posterior labrum were found to be stable to probe. The glenoid surface was probed and was fo und to be intact with no significant chondromalacia damage or chondromalacia. There were no loose sherley dies found on the axillary pouch. Subscapularis was noted to be intact. We made a full-thickness te ar over the anterior supraspinatus tendon. Lateral portal was created using a spinal needle. Arthro scopic shaver was brought into the lateral portal position and was brought in the shoulder joint conf irming a full-thickness tear. The undersurface of the rotator cuff of the supraspinatus was debrided using an arthroscopic shaver as well footprint on the greater tuberosity to create a bleeding bony b ed. Next, arthroscope was brought in the subacromial space and a subacromial bursectomy was performe d using arthroscopic shaver. Soft tissue was then debrided off the undersurface of the acromion usin g the radiofrequency ablator. Cannula was placed in the lateral portal. A spinal needle was then us ed to make a stab incision just lateral to the acromion. single 5.5 mm Arthrex screw was placed just lateral to the articular surface. The double loaded suture was passed through the supras pinatus tendon tear in an anterior and posterior fashion and tied in a horizontal mattress fashion wi th overall good reduction of the tear on the greater tuberosity. The lateral row fixation was then p erformed to improve surface area of the reduction onto the footprint of the greater tuberosity ____ single 4.75 mm Arthrex SwiveLock. There was overall good reduction of the supraspinatus tear to the greater tuberosity. Next, attention was taken to performing a subacromial decompression. The a rthroscopic bur was then placed in the lateral portal and decompression was performed as well as an a cromioplasty. Next, attention was taken to the distal clavicle where the patient have some inferior projecting screws off the medial aspect of the acromion near the AC joint. Acromioplasty was perform ed medially as well as the distal clavicle incision was performed using the arthroscopic bur to both lateral and anterior portals. After this was completed, arthroscopic instruments were removed withou t complication. Attention was then taken to the subpectoral biceps tenodesis. Approximately, a 4 cm incision was made just medial to the tendon insertion on the proximal humerus. Dissection was taken down to the fascia which was divided proximally and distally. The pec tendon was then retracted sup eriorly and the long tendons of biceps was identified. It was brought out through the incision measu red 3 cm distal to the musculoskeletal junction. It was marked and whipstitch remaining tendon was c ut and removed. The bicipital groove and then identified. Soft tissue was then debrided using an el evator as well as the Bovie. A single guidepin was placed fashion into the bicipital groo ve followed by an 8 mm reamer the tunnel. The whipstitch tendon was then placed and passe d through the Bio-Tenodesis screw and put into position in between the tunnel and there was good fixa tion of the tendon as well as the screw within the tunnel. The suture ends were then tied over the t op of the screw and the remaining sutures were cut. The wounds were then irrigated thoroughly with n ormal saline. Subcutaneous tissue was approximated using 2-0 Vicryl portals. Skin was then approxim ated using a 3-0 Monocryl. Sterile dressings were applied. Patient was awaken and transferred to [facility] in stable condition. Postoperative Plan: The patient will follow the medium rotator cuff repair protocol beginning at 3 w eeks postop. Follow up next week for wound check. ANT/DORI Voice ID: [id number] Report ID: [id number]
== END 2019-04-19 13:30 | disposition home or self-care (01) ==
LOC: OR 06:06
PROVIDERS: ATTEND Orthopaedic Surgery Sports Medicine
PROC: 0RHJ44Z Insertion of Internal Fixation Device into Right Shoulder Joint, Percutaneous Endoscopic Approach (ICD-10-PCS; 2019-04-19)
PROC: 0RNJ4ZZ Release Right Shoulder Joint, Percutaneous Endoscopic Approach (ICD-10-PCS; 2019-04-19)
PROC: 0RBJ4ZZ Excision of Right Shoulder Joint, Percutaneous Endoscopic Approach (ICD-10-PCS; 2019-04-19)
PROC: 0PB94ZZ Excision of Right Clavicle, Percutaneous Endoscopic Approach (ICD-10-PCS; 2019-04-19)
PROC: 0LS10ZZ Reposition Right Shoulder Tendon, Open Approach (ICD-10-PCS; 2019-04-19)
PROC: 0RHJ04Z Insertion of Internal Fixation Device into Right Shoulder Joint, Open Approach (ICD-10-PCS; 2019-04-19)
PROC: 0LQ14ZZ Repair Right Shoulder Tendon, Percutaneous Endoscopic Approach (ICD-10-PCS; principal; 2019-04-19 07:30)
DX: S46.011A Strain of muscle(s) and tendon(s) of the rotator cuff of right shoulder, initial encounter (principal); S43.431A Superior glenoid labrum lesion of right shoulder, initial encounter; M65.811 Other synovitis and tenosynovitis, right shoulder; M75.41 Impingement syndrome of right shoulder; M19.011 Primary osteoarthritis, right shoulder; Z82.49 Family history of ischemic heart disease and other diseases of the circulatory system
CPT/HCPCS: 93005; 85025; 80048; 36415; 85610; 80076; 85730; 81003; 71046; 73020; 29827; 29826; 29822; 29824; 23430; J2704; J0171 ×2; J2250; J3010; J2795 ×2; J1170; J0690; J7120 ×2; J2405

== ENCOUNTER 2021-02-03 17:21 | Emergency (ER) | payer OTHER ==
--- OUTSIDE RECORDS SUMMARY | 2021-02-03 17:24 | XMS REPORT | Continuity of Care Document ---
:1970 Author Organization [facility] t Address [address] [place] [address] Care Team Providers Name Role Phone Jacquie Frost Attending Clinician Jacquie Frost Admitting Clinician Problems Condition Condition Condition Status Onset Resolution Last Treating Co mments Source Name Details Category Date Date Treatment Clinician Date FOLLOW UP Diagnosis Active 2018-12-27 Memoria 12-07 09:14:00 l FOLLOW 00:00: Gavin UP 00 Active 9 [facility] LEFORT II Diagnosis Active 2018-12-09 Memoria FX - 22:17:00 l LEFORT 00:00: Gavin II FX 00 Active 12/04/2018 [facility] LEFORT II Diagnosis Active 2018-12-09 Memoria FRACTURE, 22:17:00 l INITIAL [facility] ENCOUNTER II FO FRACTURE, INITIAL ENCOUNTER FO Active [facility] Allergies, Adverse Reactions, Alerts This patient has no known allergies or adverse reactions. Social History Smoking Status Start Date Stop Date Source Social History [facility] Medications Ordered Filled Start Stop Current Ordering Indication Dosage Frequency Signature Comments Components Source Medication Medication Date Date Medication? Clinician (SIG) Name Name tramadol 2019 Yes 50 mg = 1 Zhen leon hydrochlori 6-11 tab, PO, l de 50 MG 20:39: Q4H, PRN Lottie nn Oral Tablet 00 Pain Score 6-10, X 7 day, # 30 tab, 0 Refill(s) 12 HR Yes 2 tab, PO, Memori a Guaifenesin 6-11 BID, PRN l 600 MG / 20:39: for Gavin Pseudoephed 00 congestion rine , X 10 Hydrochlori day, # 40 de 60 MG tab, 0 Extended Refill(s) Release Tablet [Mucinex D] Nasal Yes 2 drp, Memoria Saline 6-11 NASAL, l 0.65% 20:39: Q2H, # 2 [place] solution 00 ea, 0 Refill(s) Amoxicillin Yes 1 tab, PO, Memoria 875 MG / 6-11 Q12H, X 10 l Clavulanate 20:39: day, # 20 H ermann 125 MG Oral 00 tab, 0 Tablet Refill(s) [Augmentin 875-mg] Acetaminoph Yes 325 mg = 1 Memoria en 325 MG 6-11 tab, PO, l Oral Tablet 20:39: Q4H, PRN He rmann 00 Fever, X 5 day, # 30 tab, 0 Refill(s) ibuprofen Yes 600 mg = 1 Me moria 600 mg oral 6-11 tab, PO, l tablet 20:39: Q6H, PRN Gavin 00 Pain or Fever, Take with food, X 7 day, # 28 tab, 0 Refill(s) chlorhexidi Yes 0.018 gm = Memoria ne 12-06 15 mL, PO, l gluconate 20:39: BID, swish He rmann 1.2 MG/ML 00 and spit; Mouthwash do not [Peridex] swallow, # 420 mL, 0 Refill(s) Dexamethaso No Notes: Memoria ne - MEDICATION l 13:00: WASTE Product Size: 10 mg Product Wasted: ___ mg sugammadex No Notes: Memor ia 12-06 (Same as: l 03:45: [place]) sugammadex No Route: IV, M emoria (ANES) 12-06 Drug form: l 03:31: SOLN, ONCE, Stop date: 12/05/18 22:31:00 CDT ondansetron No Route: IV, Memoria (ANES) 12-06 Drug form: l 03:20: INJ, ONCE, Stop date: 12/05/18 22:20:00 CDT Oxymetazoli No Notes: Zhen leon ne 12-06 (Same as: l hydrochlori 03:19: Afrin) Herm marina de 0.5 00 MG/ML Nasal [place] [Afrin] hydromorpho No Route: IV, Memoria ne (ANES) 12-06 Drug form: l 02:25: INJ, ONCE, Stop date: 12/05/18 21:25:00 CDT midazolam 2018-0 No Route: IV, Me moria (ANES) 12-06 Drug form: l 02:04: SOLN, ONCE, Stop date: 12/05/18 21:04:00 CDT lidocaine 2018-0 No Route: IV, Me moria (ANES) 12-06 Drug form: l 02:04: INJ, ONCE, Stop date: 12/05/18 21:04:00 CDT propofol 2018-0 No Route: IV, Mem oria (ANES) 12-06 Drug form: l 02:04: INJ, ONCE, Stop date: 12/05/18 21:04:00 CDT rocuronium 2018-0 No Route: IV, M emoria (ANES) 12-06 Drug form: l 02:04: INJ, ONCE, Stop date: 12/05/18 21:04:00 CDT fentaNYL 2018-0 No Route: IV, Mem oria (ANES) 12-06 Drug form: l 02:04: INJ, ONCE, Stop date: 12/05/18 21:04:00 CDT dexamethaso 2018-0 No Route: IV, Memoria ne (ANES) 12-06 Drug form: l 01:59: INJ, ONCE, Stop date: 12/05/18 20:59:00 CDT ceFAZolin 0 No Route: IV, Me moria (ANES) 12-06 Drug form: l 01:59: INJ, ONCE, Stop date: 12/05/18 20:59:00 CDT Ondansetron 0 No 4 mg, Memor ia 12-06 Route: l 01:36: IVP, ONCE, Dosing Weight 90.909, kg, PRN Nausea & Vomiting, Start date: 12/05/18 20:36:00 CDT Hydromorpho 2019-0 No 0.5 mg, Mem oria ne - Route: l 01:36: IVP, Gavin 00 Q5Min, Dosing Weight 90.909, kg, PRN Pain Score 7-10, Start date: 12/05/18 20:36:00 CDT, Duration: 4 doses or times, Stop date: Limited # of times Naloxone 2019-0 No 0.4 mg, Memori a 12-06 Route: l 01:36: IVP, [place] 00 Q2MIN, Dosing Weight 90.909, kg, PRN Narcotic Reversal, Start date: 12/05/18 20:36:00 CDT, Duration: 8 doses or times, Stop date: Limited # of times Flumazenil 2019-0 No 0.2 mg, Zhen leon 12-06 Route: l 01:36: IVP, PRN, Gavin 00 Dosing Weight 90.909, kg, PRN Benzodiaze pine Reversal, Initial dose, Start date: 12/05/18 20:36:00 CDT, Duration: 30 day, Stop date: 01/04/19 20:35:00 CDT Oxycodone 2019-0 No 10 mg, Memori a Hydrochlori 12-06 Route: PO, l de 5 MG 01:36: Drug form: Herm marina Oral Tablet 00 TAB, Q4H, Dosing Weight 90.909, kg, PRN Pain Score 7-10, Start date: 12/05/18 20:36:00 CDT, Duration: 30 day, Stop date: 01/04/19 20:35:00 CDT Hydralazine 2019-0 No 10 mg, Zhen leon 12-06 Route: l 01:36: IVP, [place] 00 Q20Min, Dosing Weight 90.909, kg, PRN Elevated BP, Start date: 12/05/18 20:36:00 CDT, Duration: 2 doses or times, Stop date: Limited # of times Lactated 2019-0 No Route: IV, Mem oria Ringers -11 Total l Injection 01:15: Volume: Lottie nn IV (ANES) 00 1,000, 1000 mL Start date: 12/05/18 20:15:00 CDT, Stop date: 12/05/18 21:15:00 CDT sennosides, 2019-0 No Notes: Zhen leon [facility] 8.6 MG 6-10 (Same as: l Oral Tablet 14:00: Senokot) He rm Bacitracin No 1 appl, Zhen leon 6-10 Route: l 14:00: TOP, QID, Drug form: OINT, Priority: Stat, Start date: 12/05/18 9:00:00 CDT, Duration: 30 day, Stop date: 01/03/19 21:00:00 CDT Docusate No Notes: Memoria 6-10 (Same as: l 14:00: Colace) (Do Not Crush) chlorhexidi No Notes: Zhen leon ne 6-10 (Same As: l gluconate 14:00: Peridex) Herm marina 1.2 MG/ML 00 Mouthwash [Peridex] Unasyn No Notes: Memoria 6-10 Dosing l 05:00: based on Ampicillin component (Same as: Unasyn) Tramadol No Notes: Not Mem oria 6-10 to exceed l 05:00: 400mg/day. Gavin 00 (Same As: Ultram) Ibuprofen No Notes: Memori a 6-10 (Same as: l 05:00: Motrin) "Do Not Crush" Take with food. Acetaminoph No Notes: Do M emoria en 6-10 not exceed l 05:00: 4 gm/day. Gavin 00 (Same as: Tylenol) Lovenox No Notes: Memoria 6-10 (Same as: l 04:40: Lovenox) tramadol No Notes: Not Mem oria hydrochlori 6-10 to exceed l de 50 MG 04:31: 400mg/day. Her mejia Oral Tablet (Same As: Ultram) Oxycodone No Notes: Memori a Hydrochlori 6-10 (Same as: l de 5 MG 04:31: Roxicodone Herm marina Oral Tablet 00 ) Lovenox No 30 mg, Memoria 6-10 Route: l 04:31: SUB-Q, Drug form: INJ, Q12H, Dosing Weight 90.909, kg, Priority: STAT, Start date: 12/04/18 23:31:00 CDT, Duration: 30 day, Stop date: 01/03/19 21:00:00 CDT Zofran No Notes: Memoria 6-10 (Same as: l 04:31: Zofran) [place] 00 MEDICATION WASTE Product Size: 4 mg Product Wasted: ___ mg Isolyte S No Notes: Memori a PH 7.4 6-10 (Same as: l 1,000 mL 04:31: Isolyte S Herm marina 00 PH 7.4) Ondansetron No Notes: Zhen leon 6-10 (Same as: l 03:18: Zofran) Gavin 00 MEDICATION WASTE Product Size: 4 mg Product Wasted: ___ mg Morphine No Notes: Memoria 6-10 (Same l 03:18: as:MORPhin [place] 00 e Sulfate) Isolyte S No 1,000 mL, Mem oria PH-7.4 6-10 Route: IV, l (Bolus) IV 02:06: ONCE, Giorgio n 00 Dosing Weight 90.909 kg, Start date: 12/04/18 21:06:00 CDT, Stop date: 12/04/18 21:06:00 CDT Vital Signs Vital Name Observation Time Observation Value Comments Source Weight 2019-01-10 20:57:00 [facility] [place] Heart Rate 2019-01-10 20:57:00 [facility] [place] Respitory Rate 2019-01-10 20:57:00 Memori al [place] Systolic (mm Hg) 2019-01-10 20:57:00 Zhen rial [place] Diastolic (mm Hg) 2019-01-10 20:57:00 Mem orial [place] Respitory Rate 2018-12-27 14:48:00 Memori al [place] Heart Rate 2018-12-27 14:48:00 [facility] [place] Systolic (mm Hg) 2018-12-27 14:48:00 Zhen rial Gavin Diastolic (mm Hg) 2018-12-27 14:48:00 Mem orial [place] Weight 2018-12-15 21:59:00 [facility] [place] BMI Calculated 2018-12-15 21:59:00 Memori al [place] Height 2018-12-15 21:59:00 175.26 cm [facility] [place] Systolic (mm Hg) 2018-12-15 21:59:00 Zhen rial [place] Diastolic (mm Hg) 2018-12-15 21:59:00 Mem orial [place] Heart Rate 2018-12-15 21:59:00 [facility] [place] Respitory Rate 2018-12-15 21:59:00 Memori al [place] Heart Rate 2018-12-06 21:09:00 [facility] [place] Temperature Oral (F) 2018-12-06 21:09:00 98 F [facility] [place] Systolic (mm Hg) 2018-12-06 21:09:00 Zhen rial [place] Diastolic (mm Hg) 2018-12-06 21:09:00 Mem orial [place] Respitory Rate 2018-12-06 21:09:00 Memori al [place] Systolic (mm Hg) 2018-12-06 17:28:00 Zhen rial [place] Diastolic (mm Hg) 2018-12-06 17:28:00 Mem orial [place] Heart Rate 2018-12-06 17:28:00 [facility] [place] Respitory Rate 2018-12-06 17:28:00 Memori al [place] Heart Rate 2018-12-06 12:52:00 [facility] [place] Respitory Rate 2018-12-06 12:52:00 Memori al [place] Systolic (mm Hg) 2018-12-06 12:52:00 Zhen rial [place] Diastolic (mm Hg) 2018-12-06 12:52:00 Mem orial [place] Temperature Oral (F) 2018-12-05 21:19:00 97.7 F [facility] [place] Temperature Oral (F) 2018-12-05 16:32:00 97.5 F [facility] Weight 2018-12-05 08:00:00 [facility] [place] Height 2018-12-05 08:00:00 175.26 cm [facility] [place] BMI Calculated 2018-12-05 08:00:00 Memori al [place] BMI Calculated 2018-12-05 01:34:00 Memori al [place] Weight 2018-12-05 01:34:00 [facility] [place] Height 2018-12-05 01:34:00 175.26 cm [facility] [place] Procedures This patient has no known procedures. Encounters Start End Encounter Admission Attending Care Care Encounter Source Date/Time Date/Time Type Type Clinicians Facility Department ID 2018-12-15 2019-01-14 Recurring nullFlavo [facility] [id number] Memoria 12:06:00 04:59:00 r Gavin 00 l [facility] 2018-12-15 2019-01-13 Outpatient Santosh [facility] [id number] 07:06:00 23:59:00 [place] 00 Mtanios 2018-12-15 2018-12-15 Outpatient [facility] [id number] [facility] 07:06:00 07:06:00 2018-12-05 2018-12-06 Inpatient nullFlavo [facility] [id number] Memoria 01:34:00 23:15:00 r [place] 60 l [facility] 2018-12-04 2018-12-06 Outpatient Santosh [facility] [id number] 20:34:00 18:15:00 [place] 60 Mtanios 2018-12-04 2018-12-04 Inpatient E [facility] [id number] [facility] 23:02:00 18:55:00 Results Test Description Test Time Test Comments Results Result Comments Source ELECTROLYTES 2018-12-06 13.5 Memorial 10:14:00 [place] ELECTROLYTES 2018-12-06 63 [facility] 10:14:00 Gavin ELECTROLYTES 2018-12-06 8.5 [facility] 10:14:00 [place] ELECTROLYTES 2018-12-06 4.5 [facility] 10:14:00 [place] ELECTROLYTES 2018-12-06 105 [facility] 10:14:00 Gavin ELECTROLYTES 2018-12-06 24 [facility] 10:14:00 Gavin ELECTROLYTES 2018-12-06 14 Memorial 10:14:00 [place] ELECTROLYTES 2018-12-06 1.31 [facility] 10:14:00 Gavin ELECTROLYTES 2018-12-06 138 [facility] 10:14:00 [place] ELECTROLYTES 2018-12-06 170 [facility] 10:14:00 [place] HEMATOLOGY 2018-12-06 2.8 Memorial 10:14:00 Gavin HEMATOLOGY 2018-12-06 1.5 [facility] 10:14:00 Gavin HEMATOLOGY 2018-12-06 0.6 [facility] 10:14:00 Gavin HEMATOLOGY 2018-12-06 6.8 Memorial 10:14:00 Gavin HEMATOLOGY 2018-12-06 0.2 [facility] 10:14:00 Gavin HEMATOLOGY 2018-12-06 20.5 [facility] 10:14:00 Gavin HEMATOLOGY 2018-12-06 90.2 [facility] 10:14:00 Gavin HEMATOLOGY 2018-12-06 Normal [facility] 10:14:00 (12/06/18 5:14 Gavin AM) HEMATOLOGY 2018-12-06 Normal [facility] 10:14:00 (12/06/18 5:14 Gavin AM) HEMATOLOGY 2018-12-06 12.7 [facility] 10:14:00 [place] HEMATOLOGY 2018-12-06 375 [facility] 10:14:00 [place] HEMATOLOGY 2018-12-06 34.5 [facility] 10:14:00 [place] HEMATOLOGY 2018-12-06 7.6 Memorial 10:14:00 Gavin HEMATOLOGY 2018-12-06 22.7 [facility] 10:14:00 [place] HEMATOLOGY 2018-12-06 4.58 [facility] 10:14:00 [place] HEMATOLOGY 2018-12-06 10:14:00 Test Item Value Reference Range Interpretation Comme nts MCH (test code = MCH) 32.8 pg 27.0-31.0 [facility] MytmrsgKVBMUAXRQL6401-99-25 10:14:0043.5[facility]ann[facility]OLOGY 2018-12-06 10:14:0015.0[facility] TtuukhoAEKQBEFLEL7593-67-97 10:14:0094.9[facility] BetigmzQZGSNXICXA5550-68-08 08:43:0012.5[facility] VmmnwtzXIEYOKQNGU3927-30-25 08:43:28147Qfljbqfq CdcpthmNVYNVFKUKN7267-33-74 08:43:007.8[facility] [place] NXBQUCCOLZ9167-17-49 08:43:0012.4[facility] TywyijaRTBWNRNLQY4320-66-44 08:43:00 4.24[facility] IlhcjzhBJYJZHBQZS0851-74-96 08:43:001.1[facility] HermannHEMATOLOGY 2018-12-05 08:43:000.1[facility] YizmwseUSKNPGJFCB9315-92-00 08:43:001.6[facility] CcrdswmWQARRXMFZM3337-80-88 08:43:000.5[facility] LnxnkvnZTMRPRTBRT3897-69-83 08:43:009.6[facility] WxnayfmOZUDAKWWQH8340-08-57 08:43:000.3[facility] [place] XYSJHHXATW2210-85-13 08:43:0013.2[facility] QfauuotTJQKLWVCPH8220-98-37 08:43:00 9.0[facility] PufluwiTTVLNBUXKF2043-77-21 08:43:0077.0[facility] HermannELECTROLYTES 2018-12-05 08:43:0012.8[facility] OfpgsdlOTCWSGALHADY3676-05-09 08:43:0075[facility] MnlqpqiEFJEWMNGBRDP3570-89-16 08:43:0024[facility] WrklrsbIZOVFLAUAYBY3633-71-31 08:43:008.2[facility] HrzrsmgRFLLIRHFJISI9804-85-75 08:43:003.8[facility] JDCZLOJIGNDF5186-92-68 08:43:27794Kjgftriw DnbkaqeZVFZPRWETBNX0163-67-44 08:43:61518Zzrjkbsd MhhclgcCABWOSLESFST9515-86-24 08:43:001.14[facility] GWFNFHKSIGYO2790-47-42 08:43:90022Faxrdxae DmqpjgyGMPFBPIAXLTK2960-22-88 08:43:0014[facility] LwswzgxXQHWNQNKGO8929-78-13 08:43:0040.2[facility] [place] IXQIBXEAQH3063-62-95 08:43:0014.1[facility] GbgmhzmHQLROCMKEM9697-43-42 08:43:00 94.8[facility] YbibyvgZYMHWBGEXX0320-94-85 08:43:00 Test Item Value Reference Range Interpretation Comments MCH (test code = MCH) 33.3 pg 27.0-31.0 [facility] MfkjtdyLTPKUTPWJP1845-60-13 08:43:0035.2[facility] HermannCHEM PANEL 2018-12-05 02:32:001.7[facility] DzqqllbMDKPDCMWGSMA5962-55-91 02:32:0013.0 [facility] CjeqfnaWUKRHSKFZBQU2336-03-29 02:32:004.0[facility] HermannELECTROLYTES 2018-12-05 02:32:008.7[facility] IveofytQMTCFORTIAAM7004-33-46 02:32:0024[facility] PqpibwzCQFMZPWJDQGM4181-78-73 02:32:29893Teauwxnh GbmwicoLDYKVCWIWDEW9551-34-29 02:32:0067[facility] OozvhcnSAGDZNMGFBFT7307-30-96 02:32:0015[facility] VASZMLGYKLNI2544-69-11 02:32:82626Pholqiuv GonhfteNIYSHTCMFEDY0751-69-86 02:32:52011Gwzwslaq AcvwlwwWDBFMJQGNZZB1274-02-83 02:32:001.25[facility] [place] AIVAPBMQXC3173-51-61 02:32:00 Test Item Value Reference Range Interpretation Comments PTT (test code = PTT) 25.5 s 22.9-35.8 Memorial NfixzqyVNQLDQJFOJ6842-51-14 02:32:00 Test Item Value Reference Range Interpretation Comments PT (test code = PT) 13.0 s 12.0-14.7 [facility] VmgzxysCCGKMUSDPR3039-60-09 02:32:00 Test Item Value Reference Range Interpretation Comments INR (test code = INR) 1.00 1 0.85-1.17 [facility] NwqutyuUMMAFQDGXB7565-66-13 02:32:007.8[facility] HermannHEMATOLOGY 2018-12-05 02:32:004.53[facility] XsrapewVFRARPPENJ4591-11-57 02:32:0035.3[facility] RnrrgzfBKEGGJFDZY5434-78-30 02:32:00 Test Item Value Reference Range Interpretation Comments MCH (test code = MCH) 32.9 pg 27.0-31.0 [facility] GyxsdueNWAJRVSGNQ7962-84-23 02:32:0093.2[facility] HermannHEMATOLOGY 2018-12-05 02:32:0042.3[facility] VhwkuumIBAHDDJZOD9849-06-16 02:32:0012.7[facility] HhlsmfbZKKBLFXVTE5294-43-58 02:32:46762Vhzvheyb OskfvnsHAOWEOPMBW8142-58-86 02:32:0014.9[facility] UlrjsyjJNXKJXSMHK4637-19-20 02:32:0014.4[facility] VIOUQBPTEI1679-31-71 02:32:005.8[facility] HzaycieQQUZFKRHMG6826-50-03 02:32:009.5 [facility] AqjartqHTWZWEADXX7856-64-52 02:32:0084.1[facility] HermannHEMATOLOGY 2018-12-05 02:32:000.1[facility] QsxebkoFFMWCZLCTO4336-92-50 02:32:000.8[facility] WteotrrYXBJISZCFD3625-02-89 02:32:001.4[facility] JyiovagKZHBEKMOTT8490-03-92 02:32:0012.1[facility] AmmjtvqWLSATTBEIG4901-03-28 02:32:000.5[facility] TITGOBGIFN2221-54-90 02:32:000.1[facility] VlgpcvtPCYOJIKBEF4681-55-98 02:32:00 Negative *NA*(12/04/18 9:32 PM)[facility]
--- NOTE | 2021-02-03 19:08 | RAD REPORT ---
EXAM DESCRIPTION: RAD - Chest Pa And Lat (2 Views) - 02/03/2021 6:40 pm CLINICAL HISTORY: PAIN COMPARISON: CHEST SINGLE VIEW dated 07/01/2014; CHEST SINGLE VIEW dated 01/19/2014Chest Pa And Lat (2 V iews) dated 04/12/2019; Abdomen 1 View (KUB) dated 10/07/2016; Chest Single View dated 09/28/2016 FINDINGS: Mild increased ill-defined opacities within the right mid lung and at the left lung base. The heart size is within normal limits.No acute osseous abnormality. No significant pleural effusions or pneumothorax. IMPRESSION: Mild increased right mid lung and left basilar opacities could reflect pneumonia.
--- NOTE | 2021-02-03 20:00 | ER ---
Nurse's Notes [facility] Name: Hi Singh Age: 51 yrs Sex: Male : 1970 Arrival Date: 02/03/2021 Time: 17:24 Bed Treatment Private MD: Diagnosis: Coronavirus infection, unspecified-covid 19 pneumonia;Cough;Anxiety disorder, unspecified Presentation: 02/03 18:14 Chief complaint: Patient states: Pt stated, "I have Covid and I think my anxiety is kg getting me. It hurts really bad around my rib cage when I cough and my back." x 1day. Coronavirus screen: Client denies travel out of the [place] in the last 14 days. At this time, unable to obtain information related to travel outside the [place] Client presents with at least one sign or symptom that may indicate coronavirus-19. Standard/surgical mask placed on the client. Provider contacted for isolation considerations. Client reports previous positive COVID test result. Date of collection: January 28, 2021. Ebola Screen: Patient negative for fever greater than or equal to 101.5 degrees Fahrenheit, and additional compatible Ebola Virus Disease symptoms Patient denies exposure to infectious person. Patient denies travel to an Ebola-affected area in the 21 days before illness onset. Initial Sepsis Screen: Does the patient meet any 2 criteria? No. Patient's initial sepsis screen is negative. Does the patient have a suspected source of infection? No. Patient's initial sepsis screen is negative. Risk Assessment: Do you want to hurt yourself or someone else? Patient reports no desire to harm self or others. Onset of symptoms was February 02, 2021. 18:14 Method Of Arrival: Ambulatory kg 18:14 Acuity: DISHA 4 kg Triage Assessment: 18:18 General: Appears in no apparent distress. Behavior is calm, cooperative, appropriate kg for age. Pain: Complains of pain in Rib cage Pain currently is 6 out of 10 on a pain scale. at worst was 10 out of 10 on a pain scale. level that patient reports is acceptable is 3 out of 10 on a pain scale. Quality of pain is described as aching, sharp, stabbing. Historical: - Allergies: 18:18 No Known Allergies; kg - Home Meds: 18:18 prednisone 10 mg Oral tab 1 tab 2 times per day [Active]; sulfamethoxazole-trimethoprim kg 800-160 mg Oral tab 1 tab every 12 hours [Active]; benzonatate 100 mg oral cap 1 cap 3 times per day for cough [Active]; albuterol sulfate 90 mcg/actuation Inhl aepb 1 puff every 6 hours [Active]; - PMHx: 18:18 Kidney stones; [place] 2 fracture; kg - PSHx: 18:18 Sx for [place]; Right rotator cuff sx; kg - Immunization history:: Adult Immunizations up to date, Client reports having NOT received the Covid vaccine. - Social history:: Smoking status: Patient denies any tobacco usage or history of. Screenin:23 Abuse screen: Denies threats or abuse. Denies injuries from another. Nutritional kg screening: No deficits noted. Tuberculosis screening: No symptoms or risk factors identified. Fall Risk None identified. Vital Signs: 18:14 BP 145 / 82; Pulse 82; Resp 20; Temp 98.5(O); Pulse Ox 100% on R/A; Weight 90.72 kg kg (R); Height 5 ft. 9 in. (175.26 cm) (R); Pain 6/10; 20:00 BP 131 / 78; Pulse 97; Resp 20; Temp 100.4(O); Pulse Ox 100% on R/A; kg 18:14 Body Mass Index 29.53 (90.72 kg, 175.26 cm) kg ED Course: 17:24 Patient arrived in ED. ds1 18:18 Triage completed. kg 18:18 Arm band placed on right wrist. kg 18:23 Patient has correct armband on for positive identification. kg 18:39 XRAY Chest Pa And Lat (2 Views) In Process Unspecified. EDMS 19:39 Jax Arguello MD is Attending Physician. umesh 19:58 Bruce Montelongo MD is Referral Physician. umesh 20:04 Franca Russell RN is Primary Nurse. kg 20:27 No provider procedures requiring assistance completed. Patient did not have IV access kg during this emergency room visit. Administered Medications: 20:00 Drug: Rocephin (cefTRIAXone) 1 grams Route: IM; Site: left gluteus; kg 20:25 Follow up: Response: No adverse reaction kg 20:01 Drug: predniSONE 40 mg Route: PO; kg 20:05 Follow up: Response: No adverse reaction kg 20:02 Drug: Pepcid (famotidine) 40 mg Route: PO; kg 20:05 Follow up: Response: No adverse reaction kg 20:02 Drug: Aspirin Chewable Tablet 324 mg Route: PO; kg 20:05 Follow up: Response: No adverse reaction kg 20:03 Drug: Zithromax (azithromycin) 500 mg Route: PO; kg 20:05 Follow up: Response: No adverse reaction kg 20:15 Drug: Motrin (ibuprofen) 600 mg Route: PO; kg 20:25 Follow up: Response: No adverse reaction kg Outcome: 19:59 Discharge ordered by MD. calvo 20:25 Patient left the ED. kg 20:27 Discharged to home ambulatory. kg 20:27 Condition: good 20:27 Discharge instructions given to patient, Instructed on discharge instructions, follow up and referral plans. Demonstrated understanding of instructions, follow-up care, medications, Prescriptions given X 4. Signatures: Dispatcher [employer] Jax Mcclain MD MD cha Sanford, Demi ds1 Franca Russell, RN RN kg
--- NOTE | 2021-02-03 20:00 | EDPHYS ---
Physician Documentation [facility] Name: Hi Singh Age: 51 yrs Sex: Male : 1970 Arrival Date: 02/03/2021 Time: 17:24 Bed Treatment Private MD: NAVI Physician Jax Arguello HPI: 02/03 19:48 This 51 yrs old Male presents to ER via Ambulatory with complaints of Chest umesh Congestion, Cough. 19:48 The patient or guardian reports cough, described as mild. Onset: The symptoms/episode umesh began/occurred 5 day(s) ago. Severity of symptoms: At their worst the symptoms were mild, in the emergency department the symptoms are unchanged. Modifying factors: The symptoms are alleviated by cool environment. Historical: - Allergies: 18:18 No Known Allergies; kg - Home Meds: 18:18 prednisone 10 mg Oral tab 1 tab 2 times per day [Active]; sulfamethoxazole-trimethoprim kg 800-160 mg Oral tab 1 tab every 12 hours [Active]; benzonatate 100 mg oral cap 1 cap 3 times per day for cough [Active]; albuterol sulfate 90 mcg/actuation Inhl aepb 1 puff every 6 hours [Active]; - PMHx: 18:18 Kidney stones; [place] 2 fracture; kg - PSHx: 18:18 Sx for [place]; Right rotator cuff sx; kg - Immunization history:: Adult Immunizations up to date, Client reports having NOT received the Covid vaccine. - Social history:: Smoking status: Patient denies any tobacco usage or history of. ROS: 19:52 Constitutional: Negative for fever, chills, and weight loss, Eyes: Negative for injury, umesh pain, redness, and discharge, ENT: Negative for injury, pain, and discharge, Neck: Negative for injury, pain, and swelling, Cardiovascular: Negative for chest pain, palpitations, and edema, Abdomen/GI: Negative for abdominal pain, nausea, vomiting, diarrhea, and constipation, Back: Negative for injury and pain, : Negative for injury, bleeding, discharge, and swelling, MS/Extremity: Negative for injury and deformity, Skin: Negative for injury, rash, and discoloration, Neuro: Negative for headache, weakness, numbness, tingling, and seizure, Allergy/Immunology: Negative for hives, rash, and allergies, Endocrine: Negative for neck swelling, polydipsia, polyuria, polyphagia, and marked weight changes, Hematologic/Lymphatic: Negative for swollen nodes, abnormal bleeding, and unusual bruising. 19:52 Respiratory: Positive for cough, "sounds productive". 19:52 Psych: Positive for anxiety. Exam: 19:52 Constitutional: This is a well developed, well nourished patient who is awake, alert, umesh and in no acute distress. Head/Face: Normocephalic, atraumatic. Eyes: Pupils equal round and reactive to light, extra-ocular motions intact. Lids and lashes normal. Conjunctiva and sclera are non-icteric and not injected. Cornea within normal limits. Periorbital areas with no swelling, redness, or edema. ENT: Nares patent. No nasal discharge, no septal abnormalities noted. Tympanic membranes are normal and external auditory canals are clear. Oropharynx with no redness, swelling, or masses, exudates, or evidence of obstruction, uvula midline. Mucous membranes moist. Neck: Trachea midline, no thyromegaly or masses palpated, and no cervical lymphadenopathy. Supple, full range of motion without nuchal rigidity, or vertebral point tenderness. No Meningismus. Chest/axilla: Normal chest wall appearance and motion. Nontender with no deformity. No lesions are appreciated. Cardiovascular: Regular rate and rhythm with a normal S1 and S2. No gallops, murmurs, or rubs. Normal PMI, no JVD. No pulse deficits. Abdomen/GI: Soft, non-tender, with normal bowel sounds. No distension or tympany. No guarding or rebound. No evidence of tenderness throughout. Back: No spinal tenderness. No costovertebral tenderness. Full range of motion. Male : Normal genitalia with no discharge or lesions. Skin: Warm, dry with normal turgor. Normal color with no rashes, no lesions, and no evidence of cellulitis. MS/ Extremity: Pulses equal, no cyanosis. Neurovascular intact. Full, normal range of motion. Neuro: Awake and alert, GCS 15, oriented to person, place, time, and situation. Cranial nerves II-XII grossly intact. Motor strength 5/5 in all extremities. Sensory grossly intact. Cerebellar exam normal. Normal gait. Psych: Awake, alert, with orientation to person, place and time. Behavior, mood, and affect are within normal limits. 19:52 Respiratory: the patient does not display signs of respiratory distress, Respirations: normal, Breath sounds: are clear throughout, Respiratory rate: 20 Vital Signs: 18:14 BP 145 / 82; Pulse 82; Resp 20; Temp 98.5(O); Pulse Ox 100% on R/A; Weight 90.72 kg kg (R); Height 5 ft. 9 in. (175.26 cm) (R); Pain 6/10; 20:00 BP 131 / 78; Pulse 97; Resp 20; Temp 100.4(O); Pulse Ox 100% on R/A; kg 18:14 Body Mass Index 29.53 (90.72 kg, 175.26 cm) kg MDM: 19:39 Patient medically screened. [facility] 19:54 Differential Diagnosis: Influenza Upper Respiratory Infection Sinusitis. Data reviewed: [facility] vital signs, nurses notes, radiologic studies, plain films. Data interpreted: patient monitor: rate is 82 beats/min, rhythm is regular. Test interpretation: by ED physician or midlevel provider: plain radiologic studies. Counseling: I had a detailed discussion with the patient and/or guardian regarding: the historical points, exam findings, and any diagnostic results supporting the discharge/admit diagnosis, radiology results. 02/03 18:24 Order name: XRAY Chest Pa And Lat (2 Views); Complete Time: 19:46 kg Administered Medications: 20:00 Drug: Rocephin (cefTRIAXone) 1 grams Route: IM; Site: left gluteus; kg 20:25 Follow up: Response: No adverse reaction kg 20:01 Drug: predniSONE 40 mg Route: PO; kg 20:05 Follow up: Response: No adverse reaction kg 20:02 Drug: Pepcid (famotidine) 40 mg Route: PO; kg 20:05 Follow up: Response: No adverse reaction kg 20:02 Drug: Aspirin Chewable Tablet 324 mg Route: PO; kg 20:05 Follow up: Response: No adverse reaction kg 20:03 Drug: Zithromax (azithromycin) 500 mg Route: PO; kg 20:05 Follow up: Response: No adverse reaction kg 20:15 Drug: Motrin (ibuprofen) 600 mg Route: PO; kg 20:25 Follow up: Response: No adverse reaction kg Disposition Summary: 02/03/21 19:59 Discharge Ordered Location: Home [facility] Problem: new [facility] Symptoms: have improved umesh Condition: Stable [facility] Diagnosis - Coronavirus infection, unspecified - covid 19 pneumonia umesh - Cough umesh - Anxiety disorder, unspecified umesh Followup: umesh - With: Private Physician - When: 2 - 3 days - Reason: Recheck today's complaints, Continuance of care, Re-evaluation by your physician Followup: umesh - With: Bruce Montelongo MD - When: 2 - 3 days - Reason: Recheck today's complaints, Re-evaluation by your physician Discharge Instructions: - Discharge Summary Sheet umesh - Upper Respiratory Infection, Adult [facility] - Cool Mist Vaporizer umesh - Viral Respiratory Infection, Inro-Qv-Urfl umesh - Aspirin and Your Heart umesh - Cough, Adult [facility] - COVID-19 [facility] Forms: - Medication Reconciliation Form [facility] - Thank You Letter [facility] - Antibiotic Education [facility] - Prescription Opioid Use [facility] Prescriptions: - albuterol sulfate 90 mcg/actuation Inhalation HFA aerosol inhaler - inhale 2 puff by INHALATION route every 4-6 hours; 1 Pump; Refills: 0, Product [facility] Selection Permitted - ivermectin 3 mg Oral tablet - take 4 tablet by ORAL route once daily; 20 tablet; Refills: 0, Product [facility] Selection Permitted - Hydroxyzine HCl 25 mg Oral Tablet - take 1 tablet by ORAL route every 6 hours As needed; 30 tablet; Refills: 0, [facility] Product Selection Permitted - Prednisone 20 mg Oral Tablet - take 2 tablets by ORAL route once daily for 5 days; 10 tablet; Refills: 0, [facility] Product Selection Permitted - Zithromax 500 mg Oral Tablet - take 1 tablet by ORAL route once daily for 4 days; 4 tablet; Refills: 0, [facility] Product Selection Permitted Signatures: Dispatcher [employer] Jax Mcclain MD MD cha Graham, Kristen, RN RN kg
[2021-02-03] MEDS ORDERED: AZITHROMYCIN 250 MG TAB ONE (20:15)
[2021-02-03] MEDS ORDERED: ASPIRIN 81 MG CHEWABLE TABLET ONE (20:15)
[2021-02-03] MEDS ORDERED: CEFTRIAXONE 1000 MG/VIAL ONE (20:16)
[2021-02-03] MEDS ORDERED: FAMOTIDINE 20 MG TAB ONE (20:16)
[2021-02-03] MEDS ORDERED: predniSONE 20 MG TAB ONE (20:16)
[2021-02-03 20:30] VITALS: BP 145/82; TEMP 98.5; O2SAT 100
[2021-02-03] MEDS ORDERED: IBUPROFEN 200 MG TAB PO ONE (20:39)
[2021-02-03] MEDS ORDERED: IBUPROFEN 400 MG TAB ONE (20:39)
== END 2021-02-03 20:25 | disposition home or self-care (01) ==
LOC: ER 17:21
DX: U07.1 COVID-19 (principal); J12.82 Pneumonia due to coronavirus disease 2019; F41.9 Anxiety disorder, unspecified
CPT/HCPCS: 71046; 96372; 99283; J7512

== ENCOUNTER 2021-10-19 16:25 | Emergency (ER) | payer OTHER ==
--- OUTSIDE RECORDS SUMMARY | 2021-10-19 16:30 | XMS REPORT | Continuity of Care Document ---
:1970 Author Organization [facility] t Address [address] [place] [address] Care Team Providers Name Role Phone Unavailable Unavailable Unavailable Problems Condition Condition Condition Status Onset Resolution Last Treating Co mments Source Name Details Category Date Date Treatment Clinician Date FOLLOW UP Diagnosis Active 2018-12-27 Memoria 12-07 09:14:00 l FOLLOW 00:00: [place] UP 00 Active 9 [facility] LEFORT II Diagnosis Active 2018-12-09 Memoria FX 12-04 22:17:00 l LEFORT 00:00: [place] FX 00 Active 12/04/2018 [facility] LEFORT II Diagnosis Active 2018-12-09 Memoria FRACTURE, 22:17:00 l INITIAL [facility] ENCOUNTER II FO FRACTURE, INITIAL ENCOUNTER FO Active [facility] Allergies, Adverse Reactions, Alerts This patient has no known allergies or adverse reactions. Social History Smoking Status Start Date Stop Date Source Social History [facility] Medications Ordered Filled Start Stop Current Ordering Indication Dosage Frequency Signature Comments Components Source Medication Medication Date Date Medication? Clinician (SIG) Name Name Nasal Yes 2 drp, Memoria Saline 6-11 NASAL, l 0.65% 20:39: Q2H, # 2 Gavin solution 00 ea, 0 Refill(s) Amoxicillin Yes [...] tab, PO, l tablet 20:39: Q6H, PRN [place] 00 Pain or Fever, Take with food, X 7 day, # 28 tab, 0 Refill(s) chlorhexidi Yes 0.018 gm = Memoria ne 6-11 15 mL, PO, l gluconate 20:39: BID, swish He rmann 1.2 MG/ML 00 and spit; Mouthwash do not [Peridex] swallow, # 420 mL, 0 Refill(s) tramadol Yes 50 mg = 1 Zhen leon hydrochlori 6-11 tab, PO, l de 50 MG 20:39: Q4H, PRN Lottie nn Oral Tablet 00 Pain Score 6-10, X 7 day, # 30 tab, 0 Refill(s) 12 HR Yes 2 tab, PO, Memori a Guaifenesin 6-11 BID, PRN l 600 MG / 20:39: for [place] Pseudoephed 00 congestion rine , X 10 Hydrochlori day, # 40 de 60 MG tab, 0 Extended Refill(s) Release Tablet [Mucinex D] Dexamethaso No Notes: Memoria ne 6- MEDICATION l 13:00: WASTE Product Size: 10 mg Product Wasted: ___ mg sugammadex No Notes: Memor ia - (Same as: l 03:45: [place]) sugammadex No Route: IV, M emoria (ANES) 12-06 Drug form: l 03:31: SOLN, ONCE, Stop date: 12/05/18 22:31:00 CDT ondansetron No Route: IV, Memoria (ANES) 6-11 Drug form: l 03:20: INJ, ONCE, Stop date: 12/05/18 22:20:00 CDT Oxymetazoli No Notes: Zhen leon ne -11 (Same as: l hydrochlori 03:19: Afrin) Herm marina de 0.5 00 MG/ML Nasal [place] [Afrin] hydromorpho 2018-0 No Route: IV, Memoria ne (ANES) 12-06 Drug form: l 02:25: INJ, ONCE, Stop date: 12/05/18 21:25:00 CDT midazolam 2019-0 No Route: IV, Me moria (ANES) 12-06 Drug form: l 02:04: SOLN, ONCE, Stop date: 12/05/18 21:04:00 CDT lidocaine 2019-0 No Route: IV, Me moria (ANES) 12-06 Drug form: l 02:04: INJ, ONCE, Stop date: 12/05/18 21:04:00 CDT propofol 2019-0 No Route: IV, Mem oria (ANES) 12-06 Drug form: l 02:04: INJ, ONCE, Stop date: 12/05/18 21:04:00 CDT rocuronium 2019-0 No Route: IV, M emoria (ANES) 12-06 Drug form: l 02:04: INJ, ONCE, Stop date: 12/05/18 21:04:00 CDT fentaNYL 2019-0 No Route: IV, Mem oria (ANES) 12-06 Drug form: l 02:04: INJ, ONCE, Stop date: 12/05/18 21:04:00 CDT dexamethaso 2018-0 No Route: IV, Memoria ne (ANES) 12-06 Drug form: l 01:59: INJ, ONCE, Stop date: 12/05/18 20:59:00 CDT ceFAZolin 2018-0 No Route: IV, Me moria (ANES) 12-06 Drug form: l 01:59: INJ, ONCE, Stop date: 12/05/18 20:59:00 CDT Ondansetron 2018-0 No 4 mg, Memor ia 12-06 Route: l 01:36: IVP, ONCE, Dosing Weight 90.909, kg, PRN Nausea & Vomiting, Start date: 12/05/18 20:36:00 CDT Hydromorpho 2018-0 No 0.5 mg, Mem oria ne 12-06 Route: l 01:36: IVP, [place] 00 Q5Min, Dosing Weight 90.909, kg, PRN Pain Score 7-10, Start date: 12/05/18 20:36:00 CDT, Duration: 4 doses or times, Stop date: Limited # of times Naloxone 2019-0 No 0.4 mg, Memori a 6-11 Route: l 01:36: IVP, [place] 00 Q2MIN, Dosing Weight 90.909, kg, PRN Narcotic Reversal, Start date: 12/05/18 20:36:00 CDT, Duration: 8 doses or times, Stop date: Limited # of times Flumazenil 2019-0 No 0.2 mg, Zhen leon 6-11 Route: l 01:36: IVP, PRN, Gavin 00 Dosing Weight 90.909, kg, PRN Benzodiaze pine Reversal, Initial dose, Start date: 12/05/18 20:36:00 CDT, Duration: 30 day, Stop date: 01/04/19 20:35:00 CDT Oxycodone 2019-0 No 10 mg, Memori a Hydrochlori -11 Route: PO, l de 5 MG 01:36: Drug form: Herm marina Oral Tablet 00 TAB, Q4H, Dosing Weight 90.909, kg, PRN Pain Score 7-10, Start date: 12/05/18 20:36:00 CDT, Duration: 30 day, Stop date: 01/04/19 20:35:00 CDT Hydralazine 2019-0 No 10 mg, Zhen leon 6-11 Route: l 01:36: IVP, Gavin 00 Q20Min, Dosing Weight 90.909, kg, PRN Elevated BP, Start date: 12/05/18 20:36:00 CDT, Duration: 2 doses or times, Stop date: Limited # of times Lactated 2019-0 No Route: IV, Mem oria Ringers 6-11 Total l Injection 01:15: Volume: Lottie nn IV (ANES) 00 1,000, 1000 mL Start date: 12/05/18 20:15:00 CDT, Stop date: 12/05/18 21:15:00 CDT sennosides, 2019-0 No Notes: Zhen leon [facility] 8.6 MG 6-10 (Same as: l Oral Tablet 14:00: Senokot) He rm Bacitracin No 1 appl, Zhen leon 6-10 Route: l 14:00: TOP, QID, Drug form: OINT, Priority: Stat, Start date: 12/05/18 9:00:00 CDT, Duration: 30 day, Stop date: 01/03/19 21:00:00 CDT Docusate No Notes: Memoria 6-10 (Same as: l 14:00: Colace) [place] (Do Not Crush) chlorhexidi No Notes: Zhen leon ne 6-10 (Same As: l gluconate 14:00: Peridex) Herm marina 1.2 MG/ML 00 Mouthwash [Peridex] Unasyn No Notes: Memoria 6-10 Dosing l 05:00: based on Ampicillin component (Same as: Unasyn) Tramadol No Notes: Not Mem oria 6-10 to exceed l 05:00: 400mg/day. Gavin (Same As: Ultram) Ibuprofen No Notes: Memori a 6-10 (Same as: l 05:00: Motrin) "Do Not Crush" Take with food. Acetaminoph No Notes: Do M emoria en 6-10 not exceed l 05:00: 4 gm/day. [place] 00 (Same as: Tylenol) Lovenox No Notes: Memoria 6-10 (Same as: l 04:40: Lovenox) tramadol No Notes: Not Mem oria hydrochlori 6-10 to exceed l de 50 MG 04:31: 400mg/day. Her mejia Oral Tablet 00 (Same As: Ultram) Oxycodone No Notes: Memori [...] Memoria 6-10 (Same as: l 04:31: Zofran) Gavin 00 MEDICATION WASTE Product Size: [...] Notes: Memoria 6-10 (Same l 03:18: as:MORPhin Gavin 00 e Sulfate) Isolyte S No 1,000 mL, Mem oria PH-7.4 6-10 Route: IV, l (Bolus) IV 02:06: ONCE, Giorgio n 00 Dosing Weight 90.909 kg, Start date: 12/04/18 21:06:00 CDT, Stop date: 12/04/18 21:06:00 CDT Vital Signs Vital Name Observation Time Observation Value Comments Source Weight 2019-01-10 20:57:00 [facility] [place] Heart Rate 2019-01-10 20:57:00 [facility] [place] Respitory Rate 2019-01-10 20:57:00 Memori al [place] Systolic (mm Hg) 2019-01-10 20:57:00 Zhen rial Gavin Diastolic (mm Hg) 2019-01-10 20:57:00 Mem orial [place] Respitory Rate 2018-12-27 14:48:00 Memori al [place] Heart Rate 2018-12-27 14:48:00 [facility] [place] Systolic (mm Hg) 2018-12-27 14:48:00 Zhen rial Gavin Diastolic (mm Hg) 2018-12-27 14:48:00 Mem orial [place] Weight 2018-12-15 21:59:00 [facility] [place] BMI Calculated 2018-12-15 21:59:00 Memori al [place] Height 2018-12-15 21:59:00 175.26 cm [facility] [place] Systolic (mm Hg) 2018-12-15 21:59:00 Zhen rial [place] Diastolic (mm Hg) 2018-12-15 21:59:00 Mem orial [place] Heart Rate 2018-12-15 21:59:00 [facility] [place] Respitory Rate 2018-12-15 21:59:00 Memori al Gaivn Heart Rate 2018-12-06 21:09:00 [facility] [place] Temperature Oral (F) 2018-12-06 21:09:00 98 F [facility] [place] Systolic (mm Hg) 2018-12-06 21:09:00 Zhen rial Gavin Diastolic (mm Hg) 2018-12-06 21:09:00 Mem orial [place] Respitory Rate 2018-12-06 21:09:00 Memori al [place] Systolic (mm Hg) 2018-12-06 17:28:00 Zhen rial Gavin Diastolic (mm Hg) 2018-12-06 17:28:00 Mem orial [place] Heart Rate 2018-12-06 17:28:00 [facility] [place] Respitory Rate 2018-12-06 17:28:00 Memori al [place] Heart Rate 2018-12-06 12:52:00 [facility] [place] Respitory Rate 2018-12-06 12:52:00 Memori al [place] Systolic (mm Hg) 2018-12-06 12:52:00 Zhen rial [place] Diastolic (mm Hg) 2018-12-06 12:52:00 Mem orial [place] Temperature Oral (F) 2018-12-05 21:19:00 97.7 F [facility] Temperature Oral (F) 2018-12-05 16:32:00 97.5 F [facility] [place] Weight 2018-12-05 08:00:00 [facility] [place] Height 2018-12-05 08:00:00 175.26 cm [facility] [place] BMI Calculated 2018-12-05 08:00:00 Memori al Gavin BMI Calculated 2018-12-05 01:34:00 Memori al [place] Weight 2018-12-05 01:34:00 [facility] [place] Height 2018-12-05 01:34:00 175.26 cm [facility] [place] Procedures This patient has no known procedures. Encounters Start End Encounter Admission Attending Care Care Encounter Source Date/Time Date/Time Type Type Clinicians Facility Department ID 2018-12-15 2019-01-14 [facility] [id number] Memoria 12:06:00 04:59:00 r [place] 00 l [facility] [place] 2018-12-15 2018-12-15 Outpatient [facility] [id number] [facility] 07:06:00 07:06:00 2018-12-05 2018-12-06 Inpatient nullFlavo [facility] [id number] Memoria 01:34:00 23:15:00 r [place] 60 l [facility] 2018-12-04 2018-12-04 Inpatient E [facility] [id number] [facility] 23:02:00 18:55:00 Results Test Description Test Time Test Comments Results Result Comments Source ELECTROLYTES 2018-12-06 13.5 Memorial 10:14:00 [place] ELECTROLYTES 2018-12-06 63 [facility] 10:14:00 [place] ELECTROLYTES 2018-12-06 8.5 [facility] 10:14:00 [place] ELECTROLYTES 2018-12-06 4.5 [facility] 10:14:00 [place] ELECTROLYTES 2018-12-06 105 [facility] 10:14:00 [place] ELECTROLYTES 2018-12-06 24 [facility] 10:14:00 Gavin ELECTROLYTES 2018-12-06 14 [facility] 10:14:00 [place] ELECTROLYTES 2018-12-06 1.31 [facility] 10:14:00 [place] ELECTROLYTES 2018-12-06 138 [facility] 10:14:00 [place] ELECTROLYTES 2018-12-06 170 [facility] 10:14:00 [place] HEMATOLOGY 2018-12-06 2.8 [facility] 10:14:00 [place] HEMATOLOGY 2018-12-06 1.5 [facility] 10:14:00 [place] HEMATOLOGY 2018-12-06 0.6 [facility] 10:14:00 [place] HEMATOLOGY 2018-12-06 6.8 [facility] 10:14:00 [place] HEMATOLOGY 2018-12-06 0.2 [facility] 10:14:00 [place] HEMATOLOGY 2018-12-06 20.5 [facility] 10:14:00 [place] HEMATOLOGY 2018-12-06 90.2 [facility] 10:14:00 [place] HEMATOLOGY 2018-12-06 Normal [facility] 10:14:00 (12/06/18 5:14 [place] AM) HEMATOLOGY 2018-12-06 Normal [facility] 10:14:00 (12/06/18 5:14 [place] AM) HEMATOLOGY 2018-12-06 12.7 [facility] 10:14:00 [place] HEMATOLOGY 2018-12-06 375 [facility] 10:14:00 [place] HEMATOLOGY 2018-12-06 34.5 [facility] 10:14:00 [place] HEMATOLOGY 2018-12-06 7.6 [facility] 10:14:00 [place] HEMATOLOGY 2018-12-06 22.7 [facility] 10:14:00 [place] HEMATOLOGY 2018-12-06 4.58 [facility] 10:14:00 [place] HEMATOLOGY 2018-12-06 10:14:00 Test Item Value Reference Range Interpretation Comme nts MCH (test code = MCH) 32.8 pg 27.0-31.0 [facility] FlffyvbMFHVTRQJHO6449-00-14 10:14:0043.5[facility] 2018-12-06 10:14:0015.0[facility] GafhqgwSDIKYZJZFI0820-59-59 10:14:0094.9[facility] YhgzmcwOAVYTHBIVW3962-93-16 08:43:000.5[facility] QcliqojPNPDTTNYKF3975-60-55 08:43:009.6[facility] BbofycrITTMQLMYKH8753-54-86 08:43:000.3[facility] Gavin ABAEKAAGMC7446-55-11 08:43:0013.2[facility] RqaapqoBJKDCPGWMU0782-98-00 08:43:00 9.0[facility] SquxhycHBTNDRMDGR1762-53-35 08:43:0077.0[facility]ann[facility]MATOLOGY 2018-12-05 08:43:001.1[facility] EtdihknFGSAFHIGFICM8190-39-65 08:43:0012.8 [facility] SkmrgutRBIXFENGDQ0419-53-04 08:43:000.1[facility] HermannELECTROLYTES 2018-12-05 08:43:0075[facility] OybtftjTPAOQDEESCQO7012-12-20 08:43:0024[facility] WwevomzHAYNDATKTJMP2398-85-54 08:43:008.2[facility] YdnvjjpMPNKKESUYNBO0398-99-01 08:43:003.8[facility] FmlxnipHJXRANLCYEAC6533-57-07 08:43:30130Avcknhfr [place] OFJRPHPWQFWX5934-31-60 08:43:47000Mfudqkyr YwywhdwNUOOILNSKORV6306-43-81 08:43:001.14[facility] RngslxtZBRISIOMKXKJ5679-94-69 08:43:27486Isdsymyu [place] KJLBQVTFQFYZ7249-91-78 08:43:0014[facility] OuppjqwQSWRZLZHOC2016-22-82 08:43:00 40.2[facility] NegozyaORVCXHUZUB2376-75-86 08:43:001.6[facility]annHEMATOLOGY 2018-12-05 08:43:0014.1[facility] CsjfnajZOBOIWSWDC1679-93-42 08:43:0094.8[facility] KmuvsdsLXFHTQBNQQ7653-73-62 08:43:00 Test Item Value Reference Range Interpretation Comments MCH (test code = MCH) 33.3 pg 27.0-31.0 [facility] HygncnrYZIRJHTQMK0903-94-50 08:43:0035.2[facility] HermannHEMATOLOGY 2018-12-05 08:43:0012.5[facility] KbtcadzVXEGTFDCDD8825-34-11 08:43:98937Oovumnwc IpsizdaBMHSOCCOXL8268-88-76 08:43:007.8[facility] LfdmypoSRNBRBDZNL2505-42-33 08:43:0012.4[facility] JsoannqXOGOAPMVIF2642-55-74 08:43:004.24[facility] [place] CHEM OFTBY0003-79-12 02:32:001.7[facility] WswwbjtFSMPHAXIAVOA5002-24-74 02:32:00 13.0[facility] DncnbrnXDWGBHTEPTRZ2303-45-28 02:32:004.0[facility] [place] GHIUJUOPDEAC8662-31-87 02:32:008.7[facility] XshpswePIJPSRORFXGD8964-32-10 02:32:0024[facility] NllbqtqXABPEGFCYUOW1611-90-00 02:32:94914Xgssibvh Gavin BBVUDYKCRBQM1032-75-12 02:32:0067[facility] PglkfqbWORUQTHKDXOO1816-17-30 02:32:00 15[facility] BlvnzrcCCOJDQULEMBF7082-84-63 02:32:25024Eypsuvow HermannELECTROLYTES 2018-12-05 02:32:46494Swctgixt IezuzuaGVGDDSAVMPRT7578-34-20 02:32:001.25 [facility] VasldqdDQUYGFTWNS7843-74-83 02:32:00 Test Item Value Reference Range Interpretation Comments PTT (test code = PTT) 25.5 s 22.9-35.8 [facility] LhmuohzFIAKIMZSTH5556-61-47 02:32:00 Test Item Value Reference Range Interpretation Comments PT (test code = PT) 13.0 s 12.0-14.7 [facility] LefhxggZYPXEVRTBM9009-95-28 02:32:00 Test Item Value Reference Range Interpretation Comments INR (test code = INR) 1.00 1 0.85-1.17 [facility] DhkaqqzBPDCLXYSUU8518-03-78 02:32:007.8[facility] HermannHEMATOLOGY 2018-12-05 02:32:004.53[facility] EjffwayUJHITNOLAK6202-90-53 02:32:0035.3[facility] ZlauaueWBFRMOTJKX6704-51-53 02:32:00 Test Item Value Reference Range Interpretation Comments MCH (test code = MCH) 32.9 pg 27.0-31.0 [facility] JsmkptjUNPSAIDABK9604-72-90 02:32:0093.2[facility] HermannHEMATOLOGY 2018-12-05 02:32:0042.3[facility] JwwpqisSQLGECPGVK6304-95-92 02:32:0012.7[facility] QjhiimtSWEBTTQJSK0893-48-21 02:32:22832Nuafncjg TkzxdlnGLTXJGVDTL2762-21-05 02:32:0014.9[facility] NfeplhgZOOVERPCTX9958-66-75 02:32:0014.4[facility] [place] FTHSCKEBWL6443-70-47 02:32:005.8[facility] YueakzdPCMPGQVVUF9905-94-79 02:32:009.5 Memorial ZdpapyoBRWWZOKRGD5679-40-91 02:32:0084.1[facility] HermannHEMATOLOGY 2018-12-05 02:32:000.1[facility] CizbjgfXZLFECMELW6075-61-13 02:32:000.8[facility] HzzmgagXPPJMYAHVV3808-86-17 02:32:001.4[facility] SyddotkWSBQMPCNPK3148-12-80 02:32:0012.1[facility] VwkfwdkYEXUIOJELW9434-49-46 02:32:000.5[facility] [place] OKMBDCOCOK4369-53-81 02:32:000.1[facility] LoxhazyOQUPWWSIMH4630-39-43 02:32:00 Negative *NA*(12/04/18 9:32 PM)[facility]
[2021-10-19] MEDS ORDERED: IBUPROFEN 400 MG TAB ONE (17:18)
--- NOTE | 2021-10-19 17:37 | RAD REPORT ---
EXAM DESCRIPTION: RAD - Ankle Right 3 View - 10/19/2021 5:24 pm CLINICAL HISTORY: PAINslip and fall with twisting injury COMPARISON: No comparisons FINDINGS: No fracture, dislocation or periosteal reaction. No joint effusion seen. No joint space na rrowing. Small plantar spur is present. There is slight irregularity of the distal shaft of the right tibia. This has the appearance of remodeled bone from remote spiral fracture. No significant soft tissue swelling is identifiable. No foreign body or significant soft tissue proce ss. IMPRESSION: No acute fracture or acute right ankle bone or joint finding.
--- NOTE | 2021-10-19 17:56 | EDPHYS ---
Physician Documentation [facility] Name: Hi Singh Age: 51 yrs Sex: Male : 1970 Arrival Date: 10/19/2021 Time: 16:29 Bed 11 Private MD: Chong Gonzalez E ED Physician Radha Olmos HPI: 10/19 17:07 This 51 yrs old Male presents to ER via Unassigned with complaints of Fall Injury, cp Ankle Injury. 17:07 The patient presents with an injury, pain, that is acute. The complaints affect the cp right ankle. 17:07 Onset: The symptoms/episode began/occurred today. Context: The patient can fully bear cp weight on the affected extremity. the patient is able to ambulate, with mild difficulty, resulted from misstep while stepping off washing machine. Associated signs and symptoms: The patient has no apparent associated signs or symptoms. Historical: - Allergies: 17:12 No Known Allergies; ld1 - PMHx: 17:11 Kidney stones; [place] 2 fracture; ld1 - PSHx: 17:11 Right rotator cuff sx; Sx for [place]; ld1 - Immunization history:: Adult Immunizations up to date, Client reports receiving the 2nd dose of the Covid vaccine. - Social history:: Smoking status: Patient denies any tobacco usage or history of. Patient/guardian denies using alcohol. ROS: 17:10 MS/extremity: Positive for pain, of the right ankle, Negative for decreased range of cp motion, deformity, paresthesias. 17:10 Constitutional: Negative for body aches, chills, fever. cp 17:10 Respiratory: Negative for cough, shortness of breath, wheezing. 17:10 Abdomen/GI: Negative for abdominal pain, nausea, vomiting, and diarrhea. 17:10 Neuro: Negative for headache, weakness. 17:10 All other systems are negative. Exam: 17:15 Constitutional: The patient appears in no acute distress, alert, awake, non-toxic, well cp developed, well nourished. 17:15 Musculoskeletal/extremity: Extremities: grossly normal except: noted in the right cp ankle: tenderness and mild swelling to lateral malleolus, There is no evidence of decreased ROM, deformity, ROM: limited passive range of motion due to pain, in the right ankle, Pulses: noted to be 2+ in the right dorsalis pedis artery, the right foot Sensation intact. Achilles tendon palpated and intact, no pain to palpation noted proximal right fifth metatarsal. Vital Signs: 17:08 BP 137 / 85; Pulse 82; Resp 18; Temp 98.3(TE); Pulse Ox 100% on R/A; Weight 92.99 kg; ld1 Height 5 ft. 9 in. (175.26 cm); Pain 7/10; 17:08 Body Mass Index 30.27 (92.99 kg, 175.26 cm) ld1 MDM: 17:06 Patient medically screened. cp 17:30 Differential diagnosis: fracture, sprain, Achilles rupture, foot fracture. cp 17:55 Data reviewed: vital signs, nurses notes, radiologic studies, plain films. cp 17:55 Test interpretation: by ED physician or midlevel provider: plain radiologic studies. cp Counseling: I had a detailed discussion with the patient and/or guardian regarding: the historical points, exam findings, and any diagnostic results supporting the discharge/admit diagnosis, radiology results, to return to the emergency department if symptoms worsen or persist or if there are any questions or concerns that arise at home. Response to treatment: the patient's symptoms have mildly improved after treatment, and as a result, I will discharge patient. 10/19 17:07 Order name: XRAY Ankle RIGHT 3 view; Complete Time: 17:55 cp 04 17:55 Interpretation: Report reviewed. cp 10/19 17:46 Order name: Splint; Complete Time: 17:55 cp 10/19 17:46 Order name: Crutches; Complete Time: 17:55 cp Administered Medications: 17:17 Drug: Ibuprofen 800 mg Route: PO; ld1 17:18 Follow up: Response: No adverse reaction ld1 Disposition Summary: 10/19/21 17:56 Discharge Ordered Location: Home cp Problem: new cp Symptoms: have improved cp Condition: Stable cp Diagnosis - Sprain of ankle - right cp Followup: cp - With: Marcos Luis MD - When: 2 - 3 days - Reason: Worsening of condition Discharge Instructions: - Discharge Summary Sheet cp - Ankle Sprain cp Forms: - Medication Reconciliation Form cp - Thank You Letter cp - Antibiotic Education cp - Prescription Opioid Use cp Prescriptions: - Naprosyn 500 mg Oral Tablet - take 1 tablet by ORAL route 2 times per day take with food; 20 tablet; Refills: cp 0, Product Selection Permitted Signatures: Dispatcher [employer] EDME Jax Zhang, Radha Raymond cp, RN RN ld1
--- NOTE | 2021-10-19 17:56 | ER ---
Nurse's Notes [facility] Name: Hi Singh Age: 51 yrs Sex: Male : 1970 Arrival Date: 10/19/2021 Time: 16:29 Bed 11 Private MD: Chong Gonzalez E Diagnosis: Sprain of ankle-right Presentation: 10/19 17:08 Chief complaint: Patient states: I was stepping off of a dryer today, the step stool ld1 slipped and pt fell. Pt C/O right leg/ankle pain. Coronavirus screen: At this time, the client does not indicate any symptoms associated with coronavirus-19. Ebola Screen: No symptoms or risks identified at this time. Initial Sepsis Screen: Does the patient meet any 2 criteria? No. Patient's initial sepsis screen is negative. Does the patient have a suspected source of infection? No. Patient's initial sepsis screen is negative. Risk Assessment: Do you want to hurt yourself or someone else? Patient reports no desire to harm self or others. Onset of symptoms was October 19, 2021. 17:08 Method Of Arrival: Ambulatory ld1 17:08 Acuity: DISHA 4 ld1 Triage Assessment: 17:12 General: Appears in no apparent distress. comfortable, Behavior is calm, cooperative, ld1 appropriate for age. Pain: Complains of pain in right leg Pain does not radiate. Pain currently is 8 out of 10 on a pain scale. Quality of pain is described as throbbing. EENT: No signs and/or symptoms were reported regarding the EENT system. Neuro: Level of Consciousness is awake, alert, obeys commands, Oriented to person, place, time, situation. Cardiovascular: Capillary refill < 3 seconds Patient's skin is warm and dry. Respiratory: Airway is patent Respiratory effort is even, unlabored. GI: Abdomen is flat, non-distended. : No signs and/or symptoms were reported regarding the genitourinary system. Derm: No signs and/or symptoms reported regarding the dermatologic system. Musculoskeletal: No signs and/or symptoms reported regarding the musculoskeletal system. Historical: - Allergies: 17:12 No Known Allergies; ld1 - PMHx: 17:11 Kidney stones; [place] 2 fracture; ld1 - PSHx: 17:11 Right rotator cuff sx; Sx for [place]; ld1 - Immunization history:: Adult Immunizations up to date, Client reports receiving the 2nd dose of the Covid vaccine. - Social history:: Smoking status: Patient denies any tobacco usage or history of. Patient/guardian denies using alcohol. Screenin:13 Abuse screen: Denies threats or abuse. Denies injuries from another. Nutritional ld1 screening: No deficits noted. Tuberculosis screening: No symptoms or risk factors identified. Fall Risk None identified. Assessment: 17:13 Reassessment: see triage assessment. ld1 Vital Signs: 17:08 BP 137 / 85; Pulse 82; Resp 18; Temp 98.3(TE); Pulse Ox 100% on R/A; Weight 92.99 kg; ld1 Height 5 ft. 9 in. (175.26 cm); Pain 7/10; 17:08 Body Mass Index 30.27 (92.99 kg, 175.26 cm) ld1 ED Course: 16:29 Patient arrived in ED. mr 16:29 Chong Gonzalez MD is Private Physician. mr 17:03 Jax Zhang PA is PHCP. cp 17:03 Radha Olmos MD is Attending Physician. cp 17:11 Triage completed. ld1 17:12 Arm band placed on right wrist. ld1 17:13 Patient has correct armband on for positive identification. Placed in gown. Bed in low ld1 position. Call light in reach. Side rails up X2. Pulse ox on. NIBP on. Door closed. Noise minimized. Warm blanket given. 17:13 No provider procedures requiring assistance completed. Patient did not have IV access ld1 during this emergency room visit. 17:14 Radha Lind, [place] is Primary Nurse. ld1 17:26 XRAY Ankle RIGHT 3 view In Process Unspecified. EDMS 17:55 Marcos Luis MD is Referral Physician. cp 17:55 Crutch training done. Air stirrup applied to right ankle. [email or web address] Administered Medications: 17:17 Drug: Ibuprofen 800 mg Route: PO; ld1 17:18 Follow up: Response: No adverse reaction ld1 Outcome: 17:56 Discharge ordered by . cp 18:00 Discharged to home ambulatory, with crutches. ld1 18:00 Condition: stable 18:00 Discharge instructions given to patient, Instructed on discharge instructions, follow up and referral plans. medication usage, Demonstrated understanding of instructions, follow-up care, medications, Prescriptions given X 1. 18:00 Patient left the ED. ld1 Signatures: Dispatcher [employer] NAVIMI BuenrostroEstelle Corey, Radha Raymond cp, RN RN ld1 Oksana Zavala [id number]
[2021-10-19 18:09] VITALS: BP 137/85; TEMP 98.3; O2SAT 100
== END 2021-10-19 18:00 | disposition home or self-care (01) ==
LOC: ER 16:25
DX: S93.401A Sprain of unspecified ligament of right ankle, initial encounter (principal); X58.XXXA Exposure to other specified factors, initial encounter; Z87.442 Personal history of urinary calculi
CPT/HCPCS: 99284